=== PATIENT | female | born 1955 | race Two or more races ===

== ENCOUNTER 2021-02-06 13:32 | Emergency (ER) | payer OTHER ==
[~2021-02-06] VITALS: Ht 160 cm; Wt 102.5 kg
[~2021-02-06 13:32] MED LIST: AMBIEN5 MG; BENICAR20 MG; HYZAAR 100/25 T1 TAB; PERCOCET 5/3251 TAB; PLAVIX75 MG; PREDNISONE10 MG; TRAMADOL HCL50 MG
[2021-02-06] MEDS ORDERED: PROTONIX40 M1 (13:44)
[2021-02-06] MEDS ORDERED: CARDURA XL4 MG (13:44)
[2021-02-06] MEDS ORDERED: PEPCID AC20 MG PO (17:43)
[2021-02-06] MEDS ORDERED: CIPRO500 MG PO (17:43)
[2021-02-06] MEDS ORDERED: INTESTINEX680 M1 PO (17:43)
[2021-02-06] MEDS ORDERED: METRONIDAZOLE500 MG PO (17:43)
== END 2021-02-06 20:56 ==
LOC: ER 13:32
DX: K57.32 Diverticulitis of large intestine without perforation or abscess without bleeding (principal); K76.0 Fatty (change of) liver, not elsewhere classified; Z20.822 Contact with and (suspected) exposure to COVID-19

== ENCOUNTER 2021-11-08 17:54 | Emergency (ER) | payer OTHER ==
[~2021-11-08] VITALS: Ht 157.5 cm; Wt 95.3 kg
[~2021-11-08 17:54] MED LIST changes: +CARDURA XL4 MG; +CIPRO500 MG PO; +INTESTINEX680 M1 PO; +METRONIDAZOLE500 MG PO; +PEPCID AC20 MG PO; +PROTONIX40 M1
[2021-11-08] MEDS ORDERED: PANTOPRAZOLE SO40 MG PO (18:18)
[2021-11-08] MEDS ORDERED: JARDIANCE25 MG PO (18:18)
[2021-11-08] MEDS ORDERED: METOPROLOL SUC100 MG PO (18:18)
[2021-11-08] MEDS ORDERED: ATORVASTATIN CA40 MG PO (18:18)
[2021-11-08] MEDS ORDERED: ZOLPIDEM TARTRA10 MG PO (18:19)
[2021-11-08] MEDS ORDERED: TRULICITY0.75 MG/0. SQ (18:19)
[2021-11-08] MEDS ORDERED: METFORMIN HCL750 MG PO (18:19)
[2021-11-08] MEDS ORDERED: OLMESARTAN-HCT1 EAC2 PO (18:19)
== END 2021-11-09 02:42 | disposition home or self-care (01) ==
LOC: ER 17:54
DX: K57.92 Diverticulitis of intestine, part unspecified, without perforation or abscess without bleeding (principal); K76.0 Fatty (change of) liver, not elsewhere classified

== ENCOUNTER 2022-03-12 10:30 | Inpatient (IN) | payer OTHER ==
[~2022-03-12] VITALS: Ht 157.5 cm; Wt 90.7 kg
[~2022-03-12 10:30] MED LIST changes: +ATORVASTATIN CA40 MG PO; +JARDIANCE25 MG PO; +METFORMIN HCL750 MG PO; +METOPROLOL SUC100 MG PO; +OLMESARTAN-HCT1 EAC2 PO; +PANTOPRAZOLE SO40 MG PO; +TRULICITY0.75 MG/0. SQ; +ZOLPIDEM TARTRA10 MG PO
[2022-03-13] MEDS ORDERED: BENICAR HCT 401 EAC1 PO (09:06)
[2022-03-13] MEDS ORDERED: LANTUS SOL100 UNIT/1 (09:08)
[2022-03-13] MEDS ORDERED: TRULICITY1.5 MG/0.5 (09:08)
[2022-03-19] MEDS ORDERED: METHOTREXATE2.5 MG (13:41)
[2022-03-19] MEDS ORDERED: OXYC1TAB9 (13:42)
[2022-03-19] MEDS ORDERED: GABAPENTIN300 M2 (13:42)
[2022-03-19] MEDS ORDERED: METOPROLOL SUC100 MG (13:42)
[2022-03-19] MEDS ORDERED: JARDIANCE25 MG (13:42)
[2022-03-21] MEDS ORDERED: PERCOCET 5-3251 EACH PO (08:42)
[2022-03-21] MEDS ORDERED: ELIQUIS2.5 MG PO (08:42)
[2022-03-21] MEDS ORDERED: DUI500 PO (08:42)
[2022-03-30] MEDS ORDERED: METOPROLOL TART50 MG PO (11:26)
[2022-03-30] MEDS ORDERED: PERCOCET 5-3251 EACH PO (11:26)
[2022-03-30] MEDS ORDERED: CARDURA1 MG PO (11:26)
[2022-03-30] MEDS ORDERED: ELIQUIS2.5 MG PO (11:26)
[2022-03-30] MEDS ORDERED: CEFADROXIL500 MG PO (11:26)
== END 2022-03-30 15:15 | disposition home or self-care (01) | DRG 470 ==
LOC: O/R 03-18 07:17 → SURH 03-18 10:00 → SURG 03-18 14:16 → SURH 03-23 14:28
PROVIDERS: ADMIT Orthopaedic Surgery; ATTEND Orthopaedic Surgery
PROC: 0SRD0J9 Replacement of Left Knee Joint with Synthetic Substitute, Cemented, Open Approach (ICD-10-PCS; principal; 2022-03-18 10:00)
PROC: 4A12X4Z Monitoring of Cardiac Electrical Activity, External Approach (ICD-10-PCS; 2022-03-21)
DX: M17.12 Unilateral primary osteoarthritis, left knee (principal); D62 Acute posthemorrhagic anemia; I97.89 Other postprocedural complications and disorders of the circulatory system, not elsewhere classified; R00.0 Tachycardia, unspecified; M22.12 Recurrent subluxation of patella, left knee; M06.862 Other specified rheumatoid arthritis, left knee; E11.9 Type 2 diabetes mellitus without complications; I10 Essential (primary) hypertension; Z79.4 Long term (current) use of insulin; Z79.84 Long term (current) use of oral hypoglycemic drugs; Y83.8 Other surgical procedures as the cause of abnormal reaction of the patient, or of later complication, without mention of misadventure at the time of the procedure; Y92.230 Patient room in hospital as the place of occurrence of the external cause

== ENCOUNTER 2023-08-10 06:29 | Outpatient (CLI) | payer OTHER ==
[~2023-08-10 06:29] MED LIST changes: +BENICAR HCT 401 EAC1 PO; +CARDURA1 MG PO; +CEFADROXIL500 MG PO; +DUI500 PO; +ELIQUIS2.5 MG PO; +GABAPENTIN300 M2; +JARDIANCE25 MG; +LANTUS SOL100 UNIT/1; +METHOTREXATE2.5 MG; +METOPROLOL SUC100 MG; +METOPROLOL TART50 MG PO; +OXYC1TAB9; +PERCOCET 5-3251 EACH PO; +TRULICITY1.5 MG/0.5
== END 2023-08-10 06:31 | disposition home or self-care (01) ==
LOC: SONOGRAMA 06:29
PROVIDERS: ATTEND Pathology Anatomic Pathology & Clinical Pathology
DX: D34 Benign neoplasm of thyroid gland (principal); E07.89 Other specified disorders of thyroid; E04.2 Nontoxic multinodular goiter

== ENCOUNTER → 2023-09-25 09:51 | Outpatient (CLI) | payer OTHER ==
[2023-09-25 11:13] LABS: HEMATOCRIT 42.4 % (36.0-45.00); HEMOGLOBIN 14.4 g/dL (12.0-15.00); MEAN CELL VOLUME 88.2 fL (80.00-100.00); MEAN CORPUSCULAR HGB CONC 34.1 g/dl (32.0-36.0); PLATELET COUNT 269 K/uL (150-450); RED BLOOD COUNT 4.81 M/uL (4.00-6.00)
[2023-09-25 11:34] LABS: ALBUMIN 3.8 gm/dL (3.4-5.0); BILIRUBIN TOTAL 0.54 mg/dL (0.3-1.2); CALCIUM 9.9 mg/dL (8.5-10.1); CREATININE SERUM 0.85 mg/dL (0.55-1.02); GFR 66.71; GLOBULINA 3.6 G/DL (2.4-3.5); POTASSIUM 3.61 mEq/L (3.5-5.1); TOTAL PROTEIN 7.4 gm/dL (6.4-8.2)
[2023-09-25 12:03] LABS: FOLIC ACID > 20.00 ng/ml (4.78-20)
[2023-09-28 12:10] LABS: MANUAL PLATELET COUNT 362
[2023-09-28 12:12] LABS: PLATELET ESTIMATE NORMAL (NORMAL)
== END | disposition home or self-care (01) ==
LOC: LAB 09:51
PROVIDERS: ATTEND Internal Medicine Hematology & Oncology
DX: D70.2 Other drug-induced agranulocytosis (principal); I10 Essential (primary) hypertension; I87.2 Venous insufficiency (chronic) (peripheral); E78.2 Mixed hyperlipidemia; R80.8 Other proteinuria; N60.21 Fibroadenosis of right breast; M06.89 Other specified rheumatoid arthritis, multiple sites; G63 Polyneuropathy in diseases classified elsewhere; E55.9 Vitamin D deficiency, unspecified; Z96.652 Presence of left artificial knee joint; E66.01 Morbid (severe) obesity due to excess calories; E04.2 Nontoxic multinodular goiter; D50.8 Other iron deficiency anemias; R79.9 Abnormal finding of blood chemistry, unspecified; R74.02 Elevation of levels of lactic acid dehydrogenase [LDH]; K76.89 Other specified diseases of liver; D51.8 Other vitamin B12 deficiency anemias

== ENCOUNTER 2023-12-15 08:30 | Inpatient (IN) | payer OTHER ==
[~2023-12-15] VITALS: Ht 160 cm; Wt 897.2 kg
[2023-12-15] MEDS ORDERED: LIPITOR (10:02)
[2023-12-15] MEDS ORDERED: PREVACID (10:03)
[2023-12-15 10:12] LABS: URINE APPEARANCE Clear; URINE BILIRRUBIN Negative (NEGATIVE); URINE BLOOD Negative; URINE COLOR Yellow; URINE KETONE Negative (NEGATIVE); URINE LEUKOCYTE Negative; URINE NITRATE Negative; URINE PROTEIN Negative (NEGATIVE); URINE UROBILINOGEN 0.2 E.U./dl
[2023-12-15 10:17] LABS: URINE BACTERIA 18.8 uL (0.0-1933); URINE EPITHELIAL CELLS 5.8 uL (0.0-38.8); URINE RBC 2.2 uL (0.0-20.8); URINE WBC 33.3 uL (0.0-23.2)
[2023-12-15 10:26] LABS: HEMATOCRIT 38.4 % (36.0-45.00); MEAN CELL VOLUME 86.2 fL (80.00-100.00); MEAN CORPUSCULAR HEMOGLOBIN 29.2 pg (27.00-32.0); MEAN CORPUSCULAR HGB CONC 33.9 g/dl (32.0-36.0); PLATELET COUNT 285 K/uL (150-450); RED BLOOD COUNT 4.45 M/uL (4.00-6.00); RED CELL DISTRIBUTION WIDTH 15.2 % (11.5-14.5)
[2023-12-15 10:33] LABS: URINE GLUCOSE >=1000 MG/DL (NEGATIVE)
[2023-12-15 10:37] LABS: INR 0.97; PROTHROMBIN TIME 10.6 SECONDS (9.0-11.5)
[2023-12-15 11:16] LABS: ALBUMIN 3.9 gm/dL (3.4-5.0); BILIRUBIN TOTAL 0.55 mg/dL (0.3-1.2); CALCIUM 10.2 mg/dL (8.5-10.1); CHOL HDL RATIO 2.4 (0-5.0); CREATININE SERUM 0.79 mg/dL (0.55-1.02); GFR 72.59; POTASSIUM 4.03 mEq/L (3.5-5.1); TOTAL PROTEIN 7.9 gm/dL (6.4-8.2)
[2023-12-15 12:08] LABS: RH NEGATIVE
[2023-12-22] MEDS ORDERED: PREVACID15 M1 (08:19)
[2023-12-22] MEDS ORDERED: CEFAZOLIN SODIUM 1,000 MG VIAL IV SCH ×2 (08:30→09:00)
[2023-12-22] MEDS ORDERED: TRANEXAMIC ACID 100MG/1ML (1000MG) AMPUL IV ONE ×2 (08:30)
[2023-12-22] MEDS ORDERED: POVIDONE-IODINE 0.75 OZ PACKET TOP ONE (08:45)
[2023-12-22] MEDS ORDERED: BUPIVACAINE HCL 30 ML VIAL IJ ONE (08:45)
[2023-12-22] MEDS ORDERED: MORPHINE SULFATE 4 MG/ML CARTRIDGE IV ONE (08:45)
[2023-12-22] MEDS ORDERED: VANCOMYCIN HCL 1,000 MG VIAL IR ONE (08:45)
[2023-12-22] MEDS ORDERED: ISOPROPYL ALCOHOL 30 ML OUNCE TOP ONE (08:45)
[2023-12-22] MEDS ORDERED: KETOROLAC TROMETHAMINE 30 MG VIAL IJ ONE (08:45)
[2023-12-22] MEDS ORDERED: LIDOCAINE HCL 1%/EPINEPHRINE 20ML VIAL IJ ONE (08:45)
[2023-12-22] MEDS ORDERED: MORPHINE SULFATE 4 MG/ML CARTRIDGE IV PRN (09:00)
[2023-12-22] MEDS ORDERED: GABAPENTIN 300 MG CAPSULE PO SCH (09:00)
[2023-12-22] MEDS ORDERED: OxyCODONE HCL 5 MG TABLET (ROXICODONE) PO PRN (09:00)
[2023-12-22] MEDS ORDERED: ONDANSETRON HCL 2 MG/ML VIAL IV PRN (09:00)
[2023-12-22] MEDS ORDERED: SODIUM CHLORIDE 0.45 % 1,000 ML IV SCH (09:00)
[2023-12-22] MEDS ORDERED: MORPHINE SULFATE 4 MG/ML VIAL IV ONE ×2 (09:45→10:15)
[2023-12-22] MEDS ORDERED: MEPERIDINE HCL 25 MG/ML AMPUL IV ONE (11:15)
[2023-12-22] MEDS ORDERED: ACETAMINOPHEN 500 MG GEL..CAP PO SCH (12:00)
[2023-12-22 12:29] VITALS: BP 152/74; O2SAT 96
[2023-12-22 16:24] VITALS: BP 126/62; O2SAT 98
[2023-12-22] MEDS ORDERED: APIXABAN 2.5 MG TABLET PO SCH (17:00)
[2023-12-23 02:11] VITALS: BP 142/74; O2SAT 97
[2023-12-23 07:08] LABS: HEMATOCRIT 36.4 % (36.0-45.00); HEMOGLOBIN 12.1 g/dL (12.0-15.00); MEAN CELL VOLUME 86.6 fL (80.00-100.00); MEAN CORPUSCULAR HEMOGLOBIN 28.8 pg (27.00-32.0); MEAN CORPUSCULAR HGB CONC 33.3 g/dl (32.0-36.0); PLATELET COUNT 253 K/uL (150-450)
[2023-12-23] MEDS ORDERED: PERCOCET 5-3251 EACH PO (08:23)
[2023-12-23] MEDS ORDERED: ELIQUIS2.5 MG PO (08:23)
[2023-12-23] MEDS ORDERED: DUI500 PO (08:23)
[2023-12-23 08:52] VITALS: BP 120/79; O2SAT 91
[2023-12-23] MEDS ORDERED: IRON FUM,PS/FOLIC ACID/VITC/B3 1 CAP CAPSULE PO SCH (09:00)
[2023-12-23] MEDS ORDERED: SENNOSIDES 1 TAB TABLET PO SCH (09:00)
[2023-12-23] MEDS ORDERED: METOPROLOL SUCCINATE 50 MG TAB.SR.24H PO SCH (09:00)
[2023-12-23] MEDS ORDERED: VITAMIN B COMPLEX 1 EACH PO SCH (17:00)
[2023-12-23] MEDS ORDERED: SOD FERRIC GLUC COMPLX/SUCROSE 62.5 MG/5 ML AMPUL IV SCH (17:00)
[2023-12-23 17:01] VITALS: BP 122/71; O2SAT 98
[2023-12-24] VITALS: BP 120/69; O2SAT 95
[2023-12-24 08:25] LABS: HEMATOCRIT 35.2 % (36.0-45.00); HEMOGLOBIN 11.6 g/dL (12.0-15.00); MEAN CELL VOLUME 87.9 fL (80.00-100.00); MEAN CORPUSCULAR HEMOGLOBIN 28.9 pg (27.00-32.0); MEAN CORPUSCULAR HGB CONC 32.9 g/dl (32.0-36.0); PLATELET COUNT 215 K/uL (150-450); RED CELL DISTRIBUTION WIDTH 15.2 % (11.5-14.5)
[2023-12-24 09:57] VITALS: BP 155/85; O2SAT 96
[2023-12-24] MEDS ORDERED: TRAMADOL HCL 50 MG TABLET PO NR ×2 (10:45→10:47)
[2023-12-24 17:24] VITALS: BP 110/74; O2SAT 93
== END 2023-12-24 22:08 | DRG 470 ==
LOC: SURH 12-22 05:37 → O/R 12-22 05:37 → SURH 12-22 08:30
PROVIDERS: ADMIT Orthopaedic Surgery; ATTEND Orthopaedic Surgery
PROC: 0SRC0J9 Replacement of Right Knee Joint with Synthetic Substitute, Cemented, Open Approach (ICD-10-PCS; principal; 2023-12-22 19:15)
DX: M17.11 Unilateral primary osteoarthritis, right knee (principal); M22.11 Recurrent subluxation of patella, right knee

== ENCOUNTER 2024-04-18 11:24 | Inpatient (IN) | payer OTHER ==
[~2024-04-18] VITALS: Ht 160 cm; Wt 84.4 kg
[~2024-04-18 11:24] MED LIST changes: +LIPITOR; +PREVACID; +PREVACID15 M1
[2024-04-18] MEDS ORDERED: FAMOTIDINE/PF 20 MG in 0.9 % SODIUM CHLORIDE 8 ML IV PUSH STA (12:15)
[2024-04-18] MEDS ORDERED: ONDANSETRON HCL 2 MG/ML VIAL IV ONE (12:15)
[2024-04-18] MEDS ORDERED: KETOROLAC TROMETHAMINE 30 MG VIAL IV ONE (12:30)
[2024-04-18] MEDS ORDERED: 0.9 % SODIUM CHLORIDE 1,000 ML IV SCH ×2 (12:30→19:15)
[2024-04-18] MEDS ORDERED: PIPERACILLIN/TAZOBACTAM SODIUM 3.375 GM VIAL IV ONE ×2 (12:30→12:50)
[2024-04-18] MEDS ORDERED: ONDANSETRON HCL 2 MG/ML VIAL ONE (12:49)
[2024-04-18] MEDS ORDERED: KETOROLAC TROMETHAMINE 30 MG VIAL ONE (12:49)
[2024-04-18] MEDS ORDERED: FAMOTIDINE/PF 20 MG/2 ML VIAL ONE (12:50)
[2024-04-18 13:06] LABS: HEMATOCRIT 38.4 % (36.0-45.00); HEMOGLOBIN 12.9 g/dL (12.0-15.00); MEAN CORPUSCULAR HEMOGLOBIN 28.9 pg (27.00-32.0); MEAN CORPUSCULAR HGB CONC 33.6 g/dl (32.0-36.0); PLATELET COUNT 232 K/uL (150-450); RED BLOOD COUNT 4.47 M/uL (4.00-6.00); RED CELL DISTRIBUTION WIDTH 15.8 % (11.5-14.5)
[2024-04-18 13:28] LABS: ALBUMIN 3.5 gm/dL (3.4-5.0); BILIRUBIN TOTAL 0.92 mg/dL (0.3-1.2); BILIRUBIN,CONJUGATED 0.28 mg/dL (0.0-0.2); BILIRUBIN,UNCONJUGATED 0.64 mg/dL (0.0-0.6); CALCIUM 9.6 mg/dL (8.5-10.1); CREATININE SERUM 0.94 mg/dL (0.55-1.02); GFR 59.39; GLOBULINA 5.2 G/DL (2.4-3.5); POTASSIUM 3.42 mEq/L (3.5-5.1); TOTAL PROTEIN 8.7 gm/dL (6.4-8.2)
[2024-04-18] MEDS ORDERED: PROMETHAZINE HCL 25 MG/ML AMPUL IM ONE (15:00)
[2024-04-18] MEDS ORDERED: MEPERIDINE HCL/PF 50 MG/ML VIAL IM ONE (15:00)
[2024-04-18] MEDS ORDERED: PROMETHAZINE HCL 25 MG/ML AMPUL ONE (15:16)
[2024-04-18] MEDS ORDERED: ACETAMINOPHEN 500 MG GEL..CAP PO PRN (19:30)
[2024-04-18] MEDS ORDERED: MORPHINE SULFATE 4 MG/ML CARTRIDGE IV ONE (19:30)
[2024-04-18] MEDS ORDERED: ONDANSETRON HCL 4 MG in 0.9 % SODIUM CHLORIDE 50 ML IV PRN (19:30)
[2024-04-18] MEDS ORDERED: MORPHINE SULFATE 4 MG/ML CARTRIDGE IV PRN (19:30)
[2024-04-18] MEDS ORDERED: POTASSIUM CHLORIDE 20MEQ/100ML H2O PB IV ONE (19:45)
[2024-04-18] MEDS ORDERED: ZOLPIDEM TARTRATE 10 MG TABLET PO SCH (21:00)
[2024-04-18 21:32] LABS: MAGNESIUM 1.8 mg/dL (1.8-2.4)
[2024-04-18 22:10] LABS: URINE APPEARANCE Clear; URINE BILIRRUBIN Negative (NEGATIVE); URINE BLOOD Negative; URINE COLOR Yellow; URINE KETONE 15 (NEGATIVE); URINE LEUKOCYTE Trace; URINE NITRATE Negative; URINE PROTEIN 30 (NEGATIVE)
[2024-04-18 22:11] LABS: URINE EPITHELIAL CELLS 35.4 uL (0.0-38.8); URINE RBC 8.5 uL (0.0-20.8); URINE WBC 126.6 uL (0.0-23.2)
[2024-04-18 22:25] LABS: URINE CAST 0.29 uL (0.0-1.40); URINE GLUCOSE >=1000 MG/DL (NEGATIVE)
[2024-04-18 22:26] LABS: URINE EPITHELIAL CELLS 0-4 /HPF
[2024-04-18 22:39] VITALS: BP 115/66; O2SAT 100
[2024-04-18 23:26] LABS: INR 1.08; PARTIAL THROMBOPLASTIN TIME 29.6 SECONDS (22.0-34.0); PROTHROMBIN TIME 11.7 SECONDS (9.0-11.5)
[2024-04-19] MEDS ORDERED: PIPERACILLIN/TAZOBACTAM SODIUM 3.375 GM in DEXTROSE 5 % IN WATER 100 ML IV SCH
[2024-04-19 01:37] VITALS: BP 90/51
[2024-04-19 08:40] VITALS: BP 117/63
[2024-04-19] MEDS ORDERED: PANTOPRAZOLE SODIUM 40 MG/VIAL VIAL IV SCH (09:00)
[2024-04-19] MEDS ORDERED: METOPROLOL SUCCINATE 50 MG TAB.SR.24H PO SCH (09:00)
[2024-04-19] MEDS ORDERED: ENOXAPARIN SODIUM 40 MG/0.4 ML SYRINGE SUBCUTANEO SCH (09:00)
[2024-04-19] MEDS ORDERED: PREDNISONE 10 MG TABLET PO SCH (09:00)
[2024-04-19] MEDS ORDERED: FLUCONAZOLE IN NACL,ISO-OSM 200 MG/100 ML PIGGYBAG IV STA (12:03)
[2024-04-19 16:00] VITALS: BP 133/68; O2SAT 95
[2024-04-19 16:17] LABS: CALCIUM 8.5 mg/dL (8.5-10.1); CREATININE SERUM 0.75 mg/dL (0.55-1.02); GFR 77.08; POTASSIUM 3.86 mEq/L (3.5-5.1)
[2024-04-19] MEDS ORDERED: AMINO ACIDS 4.25 %/DEXTROSE 5% 1,000 ML PERIFERAL SCH (17:00)
[2024-04-19] MEDS ORDERED: DOXAZOSIN MESYLATE 4 MG TABLET PO SCH (17:00)
[2024-04-20 00:33] VITALS: BP 130/76
[2024-04-20 08:52] VITALS: BP 102/58; O2SAT 96
[2024-04-20] MEDS ORDERED: FLUCONAZOLE IN NACL,ISO-OSM 200 MG/100 ML PIGGYBAG IV SCH (09:00)
[2024-04-20 17:41] VITALS: BP 125/67; O2SAT 97
[2024-04-21] VITALS: BP 131/70; O2SAT 97
[2024-04-21 08:20] VITALS: BP 131/71
[2024-04-21] MEDS ORDERED: BUDESONIDE 0.5 MG/2 ML AMPUL.NEB IH STA (10:34)
[2024-04-21] MEDS ORDERED: ALBUTEROL SULFATE 3 ML/2.5 MG AMPUL.NEB IH STA (10:34)
[2024-04-21] MEDS ORDERED: GUAIFENESIN/DEXTROMETHORPHAN 100MG/10ML BLIST.PACK PO SCH (13:00)
[2024-04-21] MEDS ORDERED: ALBUTEROL SULFATE 3 ML/2.5 MG AMPUL.NEB IH SCH (17:00)
[2024-04-21 17:03] VITALS: BP 132/72; O2SAT 97
[2024-04-21] MEDS ORDERED: BUDESONIDE 0.5 MG/2 ML AMPUL.NEB IH SCH (21:00)
[2024-04-22] VITALS: BP 129/66; O2SAT 95
[2024-04-22] MEDS ORDERED: DEXTROSE 5%-WATER 100ML IV.SOLN ONE (05:15)
[2024-04-22 05:27] LABS: HEMATOCRIT 29.8 % (36.0-45.00); HEMOGLOBIN 10.3 g/dL (12.0-15.00); MEAN CELL VOLUME 85.6 fL (80.00-100.00); MEAN CORPUSCULAR HEMOGLOBIN 29.6 pg (27.00-32.0); MEAN CORPUSCULAR HGB CONC 34.6 g/dl (32.0-36.0); PLATELET COUNT 211 K/uL (150-450); RED BLOOD COUNT 3.48 M/uL (4.00-6.00); RED CELL DISTRIBUTION WIDTH 15.3 % (11.5-14.5)
[2024-04-22 05:40] LABS: ERYTHROCYTE SEDIMENTATION RATE 61 mm/hr
[2024-04-22 09:23] VITALS: BP 138/73
[2024-04-22] MEDS ORDERED: METRONIDAZOLE/SODIUM CHLORIDE 500 MG/100 ML PIGGYBACK IV SCH (17:00)
[2024-04-22 17:19] VITALS: BP 149/68; O2SAT 96
[2024-04-22] MEDS ORDERED: CEFEPIME HCL 2,000 MG VIAL IV SCH (21:00)
[2024-04-23 02:15] VITALS: BP 116/54
[2024-04-23 08:36] VITALS: BP 133/73
[2024-04-23 16:09] VITALS: BP 121/64; O2SAT 99
[2024-04-24 02:29] VITALS: BP 148/79; O2SAT 96
[2024-04-24 08:44] VITALS: BP 136/80; O2SAT 96
[2024-04-24 18:06] VITALS: BP 120/60
[2024-04-25 02:25] VITALS: BP 149/74
[2024-04-25 06:26] LABS: HEMATOCRIT 29.7 % (36.0-45.00); HEMOGLOBIN 10.3 g/dL (12.0-15.00); MEAN CELL VOLUME 84.6 fL (80.00-100.00); MEAN CORPUSCULAR HEMOGLOBIN 29.3 pg (27.00-32.0); MEAN CORPUSCULAR HGB CONC 34.6 g/dl (32.0-36.0); PLATELET COUNT 221 K/uL (150-450); RED BLOOD COUNT 3.51 M/uL (4.00-6.00); RED CELL DISTRIBUTION WIDTH 15.7 % (11.5-14.5)
[2024-04-25 07:04] LABS: INR 1.13; PARTIAL THROMBOPLASTIN TIME 27.4 SECONDS (22.0-34.0); PROTHROMBIN TIME 12.2 SECONDS (9.0-11.5)
[2024-04-25 07:21] LABS: ALBUMIN 2.7 gm/dL (3.4-5.0); BILIRUBIN TOTAL 0.33 mg/dL (0.3-1.2); BILIRUBIN,CONJUGATED 0.13 mg/dL (0.0-0.2); BILIRUBIN,UNCONJUGATED 0.2 mg/dL (0.0-0.6); CALCIUM 8.5 mg/dL (8.5-10.1); CREATININE SERUM 0.45 mg/dL (0.55-1.02); GFR 138.97; GLOBULINA 3.2 G/DL (2.4-3.5); MAGNESIUM 1.5 mg/dL (1.8-2.4); TOTAL PROTEIN 5.9 gm/dL (6.4-8.2)
[2024-04-25 08:10] LABS: POTASSIUM 2.79 mEq/L (3.5-5.1)
[2024-04-25 09:29] VITALS: BP 135/72; O2SAT 97
[2024-04-25 10:16] LABS: UREA CLEARANCE 56.4 ML/MIN
[2024-04-25] MEDS ORDERED: POTASSIUM CHLORIDE IN WATER 40 MEQ/100 ML PIGGYBAG IV NR (12:30)
[2024-04-25] MEDS ORDERED: MAGNESIUM SULFATE IN WATER 4GM/50ML PIGGYBAG IV STA (14:47)
[2024-04-25 16:37] VITALS: BP 141/81; O2SAT 96
[2024-04-25] MEDS ORDERED: MAGNESIUM SULFATE IN WATER 4 GM/100 ML PIGGYBACK IV ONE (17:12)
[2024-04-25] MEDS ORDERED: MAGNESIUM SULFATE IN WATER 4 GM/100 ML PIGGYBACK IV STA (17:25)
[2024-04-26 01:07] VITALS: BP 150/80; O2SAT 97
[2024-04-26 09:18] VITALS: BP 149/79; O2SAT 97
[2024-04-26] MEDS ORDERED: METRONIDAZOLE500 MG PO (12:01)
[2024-04-26] MEDS ORDERED: INTESTINEX680 M2 PO (12:01)
[2024-04-26] MEDS ORDERED: LEVOFLOXACIN750 MG PO (12:01)
[2024-04-26] MEDS ORDERED: PEPCID AC20 MG PO (12:01)
== END 2024-04-26 13:46 | disposition home or self-care (01) | DRG 392 ==
LOC: ER 11:27 → MEDI 19:58
PROVIDERS: General Practice; ADMIT Internal Medicine; ATTEND Internal Medicine
PROC: BW21ZZZ Computerized Tomography (CT Scan) of Abdomen and Pelvis (ICD-10-PCS; 2024-04-18)
PROC: 02HV33Z Insertion of Infusion Device into Superior Vena Cava, Percutaneous Approach (ICD-10-PCS; principal; 2024-04-20)
PROC: BW21YZZ Computerized Tomography (CT Scan) of Abdomen and Pelvis using Other Contrast (ICD-10-PCS; 2024-04-24)
DX: K57.20 Diverticulitis of large intestine with perforation and abscess without bleeding (principal); E86.0 Dehydration; E87.6 Hypokalemia; I10 Essential (primary) hypertension; E78.5 Hyperlipidemia, unspecified; E11.9 Type 2 diabetes mellitus without complications; Z79.4 Long term (current) use of insulin

== ENCOUNTER 2024-06-13 15:04 | Inpatient (IN) | payer OTHER ==
[~2024-06-13] VITALS: Ht 160 cm; Wt 0.5 kg
[~2024-06-13 15:04] MED LIST changes: +INTESTINEX680 M2 PO; +LEVOFLOXACIN750 MG PO
--- NOTE | 2024-06-13 15:46 | NUR ---
PTE ALERTA Y ORIENTADA X3 VERBALIZA QUE TIENE DOLOR ABDOMINAL Y PADECE DE DIVERTICULO SE LE JASKARAN S/V Y SE UBICA EN BJ.
[2024-06-13] MEDS ORDERED: ONDANSETRON HCL 2 MG/ML VIAL IV ONE (16:45)
[2024-06-13] MEDS ORDERED: CEFTRIAXONE SODIUM 1,000 MG VIAL IV ONE (16:45)
[2024-06-13] MEDS ORDERED: TAMSULOSIN HCL 0.4 MG CAP PO ONE ×2 (16:45→16:46)
[2024-06-13] MEDS ORDERED: FAMOtidine 10 MG/ML (4ML VIAL) IV ONE (16:45)
[2024-06-13] MEDS ORDERED: KETOROLAC TROMETHAMINE 30 MG VIAL IV ONE (16:45)
[2024-06-13] MEDS ORDERED: FAMOTIDINE/PF 20 MG/2 ML VIAL ONE (16:46)
[2024-06-13] MEDS ORDERED: CEFTRIAXONE SODIUM 1,000 MG VIAL ONE (16:46)
[2024-06-13] MEDS ORDERED: KETOROLAC TROMETHAMINE 30 MG VIAL ONE (16:46)
[2024-06-13] MEDS ORDERED: ONDANSETRON HCL 2 MG/ML VIAL ONE (16:46)
--- NOTE | 2024-06-13 17:05 | NUR ---
PTE ALERTA Y ORIENTADO X3, BOBBY FINCH ORIENTA SOBRE TX MEDICO,REFIERE ACEPTAR. CANALIZA Y COLECTA MUESTRAS DE LAB. ADMINSITRA MEDS MAXIMINO ORDEN MEDICA. PEND A REALIZAR CT
[2024-06-13 17:17] LABS: HEMATOCRIT 36.5 % (36.0-45.00); HEMOGLOBIN 11.9 g/dL (12.0-15.00); MEAN CELL VOLUME 84.2 fL (80.00-100.00); MEAN CORPUSCULAR HEMOGLOBIN 27.4 pg (27.00-32.0); MEAN CORPUSCULAR HGB CONC 32.5 g/dl (32.0-36.0); PLATELET COUNT 327 K/uL (150-450); RED BLOOD COUNT 4.34 M/uL (4.00-6.00); RED CELL DISTRIBUTION WIDTH 15.1 % (11.5-14.5)
[2024-06-13 17:36] LABS: ALBUMIN 3.2 gm/dL (3.4-5.0); BILIRUBIN TOTAL 0.63 mg/dL (0.3-1.2); CALCIUM 9.7 mg/dL (8.5-10.1); CREATININE SERUM 1.15 mg/dL (0.55-1.02); GFR 46.92; GLOBULINA 5.5 G/DL (2.4-3.5); POTASSIUM 3.98 mEq/L (3.5-5.1); TOTAL PROTEIN 8.7 gm/dL (6.4-8.2)
[2024-06-13 18:27] VITALS: BP 160/80
[2024-06-13] MEDS ORDERED: 0.9 % SODIUM CHLORIDE 1,000 ML IV SCH (18:45)
[2024-06-13] MEDS ORDERED: DEXTROSE 50 % IN WATER 0.5 G/ML DISP.SYRIN IV PRN (19:00)
[2024-06-13] MEDS ORDERED: MORPHINE SULFATE 4 MG/ML CARTRIDGE IV ONE (19:00)
[2024-06-13] MEDS ORDERED: INSULIN LISPRO 1,000 UNIT/10 ML UNITS SUBCUTANEO PRN (19:00)
[2024-06-13] MEDS ORDERED: MEROPENEM 500 MG/VIAL VIAL IV SCH (19:05)
[2024-06-13 19:50] LABS: INR 1.11; PARTIAL THROMBOPLASTIN TIME 28.3 SECONDS (22.0-34.0)
[2024-06-13] MEDS ORDERED: MORPHINE SULFATE 4 MG/ML CARTRIDGE IV SCH (20:00)
[2024-06-13 20:03] LABS: URINE APPEARANCE Clear; URINE BILIRRUBIN Negative (NEGATIVE); URINE BLOOD Negative; URINE COLOR Yellow; URINE KETONE Trace (NEGATIVE); URINE LEUKOCYTE Negative; URINE NITRATE Negative; URINE PROTEIN Trace (NEGATIVE); URINE UROBILINOGEN 0.2 E.U./dl
[2024-06-13 20:08] LABS: URINE BACTERIA 37.9 uL (0.0-1933); URINE EPITHELIAL CELLS 21.8 uL (0.0-38.8); URINE RBC 14.7 uL (0.0-20.8); URINE WBC 51.5 uL (0.0-23.2)
[2024-06-13 20:19] LABS: URINE GLUCOSE >=1000 MG/DL (NEGATIVE)
[2024-06-13] MEDS ORDERED: ZOLPIDEM TARTRATE 10 MG TABLET PO SCH (21:00)
[2024-06-14 00:06] VITALS: BP 126/68; O2SAT 95
[2024-06-14] MEDS ORDERED: METOPROLOL SUCCINATE 25 MG TAB.SR.24H PO STA (00:42)
[2024-06-14 01:41] VITALS: BP 138/83; O2SAT 95
[2024-06-14 08:00] VITALS: BP 121/69; O2SAT 95
[2024-06-14] MEDS ORDERED: ENOXAPARIN SODIUM 40 MG/0.4 ML SYRINGE SUBCUTANEO SCH (09:00)
[2024-06-14] MEDS ORDERED: LOSARTAN POTASSIUM 50 MG TABLET PO SCH (09:00)
[2024-06-14] MEDS ORDERED: METOPROLOL SUCCINATE 25 MG TAB.SR.24H PO SCH (09:00)
[2024-06-14] MEDS ORDERED: PREDNISONE 5 MG TABLET PO SCH (09:00)
[2024-06-14] MEDS ORDERED: FLUCONAZOLE IN NACL,ISO-OSM 100 ML IV SCH (12:00)
[2024-06-14 13:47] LABS: CALCIUM 9.1 mg/dL (8.5-10.1); CHOL HDL RATIO 2.9 (0-5.0); CREATININE SERUM 0.72 mg/dL (0.55-1.02); GFR 80.55; POTASSIUM 4.17 mEq/L (3.5-5.1)
[2024-06-14] MEDS ORDERED: AMINO ACIDS 4.25 %/DEXTROSE 5% 1,000 ML PERIFERAL SCH (17:00)
[2024-06-14 17:32] VITALS: BP 119/66; O2SAT 96
[2024-06-15 00:30] VITALS: BP 121/70; O2SAT 92
[2024-06-15 08:00] VITALS: BP 110/70; O2SAT 95
[2024-06-15 17:23] VITALS: BP 124/78; O2SAT 96
[2024-06-16 00:47] VITALS: BP 106/61; O2SAT 96
[2024-06-16 07:56] LABS: HEMATOCRIT 31.7 % (36.0-45.00); HEMOGLOBIN 10.7 g/dL (12.0-15.00); MEAN CELL VOLUME 82.5 fL (80.00-100.00); MEAN CORPUSCULAR HEMOGLOBIN 27.9 pg (27.00-32.0); MEAN CORPUSCULAR HGB CONC 33.8 g/dl (32.0-36.0); PLATELET COUNT 221 K/uL (150-450); RED BLOOD COUNT 3.84 M/uL (4.00-6.00); RED CELL DISTRIBUTION WIDTH 14.9 % (11.5-14.5)
[2024-06-16 08:05] LABS: ERYTHROCYTE SEDIMENTATION RATE 72 mm/hr
[2024-06-16] MEDS ORDERED: ONDANSETRON HCL 2 MG/ML VIAL IV SCH (09:00)
[2024-06-16 11:04] VITALS: BP 148/87; O2SAT 94
[2024-06-16] MEDS ORDERED: LINEZOLID IN DEXTROSE 5% 600 MG/300 ML PIGGYBAG IV STA (13:38)
[2024-06-16] MEDS ORDERED: DEXTROSE 50 % IN WATER 0.5 G/ML VIAL IV PRN (14:30)
[2024-06-16 16:00] VITALS: BP 121/82; O2SAT 96
[2024-06-16 16:47] LABS: ob POSITIVE (NEGATIVE)
[2024-06-16 16:56] LABS: FECAL LEUKOCYTES POSITIVE (NEGATIVE)
[2024-06-16] MEDS ORDERED: METRONIDAZOLE/SODIUM CHLORIDE 500 MG/100 ML PIGGYBACK IV STA (18:14)
[2024-06-16] MEDS ORDERED: LINEZOLID IN DEXTROSE 5% 300 ML IV SCH (21:00)
[2024-06-17 00:25] VITALS: BP 112/68; O2SAT 98
[2024-06-17] MEDS ORDERED: METRONIDAZOLE/SODIUM CHLORIDE 500 MG/100 ML PIGGYBACK IV SCH (01:00)
[2024-06-17 08:00] VITALS: BP 112/73; O2SAT 97
[2024-06-17] MEDS ORDERED: ACETAMINOPHEN 500 MG GEL..CAP PO PRN (13:00)
[2024-06-17 15:00] VITALS: BP 113/71; O2SAT 97
[2024-06-18 00:34] VITALS: BP 107/63; O2SAT 98
[2024-06-18 08:44] VITALS: BP 122/85; O2SAT 99
[2024-06-18] MEDS ORDERED: GABAPENTIN 300 MG CAPSULE PO SCH (09:00)
[2024-06-18 16:00] VITALS: BP 123/77; O2SAT 98
[2024-06-19 00:05] VITALS: BP 111/70; O2SAT 98
[2024-06-19 07:31] LABS: HEMATOCRIT 28.6 % (36.0-45.00); HEMOGLOBIN 9.8 g/dL (12.0-15.00); MEAN CELL VOLUME 81.7 fL (80.00-100.00); MEAN CORPUSCULAR HEMOGLOBIN 27.9 pg (27.00-32.0); MEAN CORPUSCULAR HGB CONC 34.2 g/dl (32.0-36.0); PLATELET COUNT 260 K/uL (150-450)
[2024-06-19 07:50] LABS: CALCIUM 8.4 mg/dL (8.5-10.1); CREATININE SERUM 0.46 mg/dL (0.55-1.02); GFR 135.09; POTASSIUM 3.48 mEq/L (3.5-5.1)
[2024-06-19 08:39] VITALS: BP 136/79; O2SAT 96
[2024-06-19 08:45] LABS: MAGNESIUM 1.3 mg/dL (1.8-2.4); PHOSPHOROUS 1.5 mg/dL (2.5-4.9)
[2024-06-19] MEDS ORDERED: POTASSIUM PHOS,M-BASIC-D-BASIC 3 MM/ML VIAL IV NR (09:45)
[2024-06-19] MEDS ORDERED: MAGNESIUM SULFATE IN WATER 4 GM/100 ML PIGGYBACK IV NR (10:15)
[2024-06-19 16:00] VITALS: BP 117/75; O2SAT 97
[2024-06-20 07:40] LABS: HEMATOCRIT 27.1 % (36.0-45.00); HEMOGLOBIN 9.3 g/dL (12.0-15.00); MEAN CELL VOLUME 80.8 fL (80.00-100.00); MEAN CORPUSCULAR HEMOGLOBIN 27.7 pg (27.00-32.0); MEAN CORPUSCULAR HGB CONC 34.3 g/dl (32.0-36.0); PLATELET COUNT 251 K/uL (150-450); RED BLOOD COUNT 3.35 M/uL (4.00-6.00); RED CELL DISTRIBUTION WIDTH 15.4 % (11.5-14.5)
[2024-06-20 08:00] VITALS: BP 138/80; O2SAT 98
[2024-06-20 08:06] LABS: INR 1.14; PARTIAL THROMBOPLASTIN TIME 28.6 SECONDS (22.0-34.0); PROTHROMBIN TIME 12.3 SECONDS (9.0-11.5)
[2024-06-20 08:27] LABS: ALBUMIN 2.3 gm/dL (3.4-5.0); ALKALINE PHOSPHATASE 61 U/L (50-136); ALT/SGPT 9 U/L (12-78); ANION GAP 10 (10.0-20.0); AST/SGOT 11 U/L (15-37); BILIRUBIN TOTAL 0.22 mg/dL (0.3-1.2); BILIRUBIN,CONJUGATED < 0.10 mg/dL (0.0-0.2); BILIRUBIN,UNCONJUGATED 0.12 mg/dL (0.0-0.6); BLOOD UREA NITROGEN 13 mg/dL (7-18); BUN CREA RATIO 33 (7.0-25.0); CALCIUM 8.5 mg/dL (8.5-10.1); CARBON DIOXIDE 24 mEq/L (21-32); CHLORIDE 115 mmol/L (98-107); CHOL HDL RATIO 3.9 (0-5.0); CHOLESTEROL 105 mg/dL (0-200); CREATININE SERUM 0.39 mg/dL (0.55-1.02); GFR 163.43; GLOBULINA 3.6 G/DL (2.4-3.5); GLUCOSE FASTING 186 mg/dL (65-100); HDL 27 mg/dl (40-60); LDL 50 mg/dl (0-130); OSMOLALITY SERUM 296 MOSM/KG (275-295); PHOSPHOROUS 2.4 mg/dL (2.5-4.9); POTASSIUM 3.15 mEq/L (3.5-5.1); SODIUM 146 mmol/L (136-145); TOTAL PROTEIN 5.9 gm/dL (6.4-8.2); TRIGLYCERIDES 142 mg/dL (0-150); VLDL 28 (0-39)
[2024-06-20] MEDS ORDERED: ALBUTEROL SULFATE 3 ML/2.5 MG AMPUL.NEB IH STA (11:32)
[2024-06-20] MEDS ORDERED: BUDESONIDE 0.5 MG/2 ML AMPUL.NEB IH STA (11:33)
[2024-06-20] MEDS ORDERED: ALBUTEROL SULFATE 3 ML/2.5 MG AMPUL.NEB IH SCH (13:00)
[2024-06-20 13:02] LABS: UREA CLEARANCE 28.5 ML/MIN
[2024-06-20] MEDS ORDERED: POTASSIUM CHLORIDE 20MEQ/100ML H2O PB IV NR (13:30)
[2024-06-20] MEDS ORDERED: SOD FERRIC GLUC COMPLX/SUCROSE 62.5 MG in 0.9 % SODIUM CHLORIDE 50 ML IV NR (13:30)
[2024-06-20 16:00] VITALS: BP 133/81; O2SAT 96
[2024-06-20] MEDS ORDERED: MIDAZOLAM HCL 2 MG/2 ML VIAL IV PUSH ONE (18:30)
[2024-06-20] MEDS ORDERED: fentaNYL CITRATE 50 MCG/ML AMPUL IV PUSH ONE (18:30)
[2024-06-20] MEDS ORDERED: POTASSIUM PHOS,M-BASIC-D-BASIC 18 MM in 0.9 % SODIUM CHLORIDE 250 ML IV ONE (19:00)
[2024-06-20] MEDS ORDERED: BUDESONIDE 0.5 MG/2 ML AMPUL.NEB IH SCH (21:00)
[2024-06-21 00:02] VITALS: BP 147/80; O2SAT 99
[2024-06-21] MEDS ORDERED: SOD FERRIC GLUC COMPLX/SUCROSE 62.5 MG in 0.9 % SODIUM CHLORIDE 50 ML IV SCH (09:00)
[2024-06-22 00:49] VITALS: BP 116/68; O2SAT 96
[2024-06-22 08:00] VITALS: BP 148/82; O2SAT 96
[2024-06-22 16:00] VITALS: BP 157/83; O2SAT 98
[2024-06-22] MEDS ORDERED: IMIPENEM/CILASTATIN SODIUM 500 MG VIAL IV SCH (18:00)
[2024-06-23 01:08] VITALS: BP 126/70; O2SAT 96
[2024-06-23 08:00] VITALS: BP 148/80; O2SAT 97
[2024-06-23] MEDS ORDERED: OxyCODONE HCL/APAP UD (PERCOCET) PO PRN (10:15)
[2024-06-23] MEDS ORDERED: IMIPENEM/CILASTATIN SODIUM 500 MG VIAL IV SCH ×2 (12:00→14:00)
[2024-06-23] MEDS ORDERED: ANIDULAFUNGIN 100 MG VIAL IV STA (12:39)
[2024-06-23] MEDS ORDERED: ANIDULAFUNGIN 100 MG VIAL IV ONE (16:00)
[2024-06-23 16:32] VITALS: BP 137/83; O2SAT 98
[2024-06-24] VITALS: BP 145/82; O2SAT 97
[2024-06-24 08:00] VITALS: BP 105/65; O2SAT 95
[2024-06-24] MEDS ORDERED: ANIDULAFUNGIN 100 MG VIAL IV SCH (09:00)
[2024-06-24 16:55] VITALS: BP 126/75; O2SAT 96
[2024-06-24] MEDS ORDERED: VANCOMYCIN HCL 125 MG CAPSULE PO SCH (17:00)
[2024-06-25 00:40] VITALS: BP 134/79; O2SAT 98
[2024-06-25 08:00] VITALS: BP 138/82; O2SAT 96
[2024-06-25 08:27] LABS: HEMATOCRIT 28.5 % (36.0-45.00); HEMOGLOBIN 9.4 g/dL (12.0-15.00); MEAN CELL VOLUME 81.8 fL (80.00-100.00); MEAN CORPUSCULAR HEMOGLOBIN 27.1 pg (27.00-32.0); MEAN CORPUSCULAR HGB CONC 33.1 g/dl (32.0-36.0); PLATELET COUNT 317 K/uL (150-450); RED BLOOD COUNT 3.49 M/uL (4.00-6.00); RED CELL DISTRIBUTION WIDTH 15.9 % (11.5-14.5)
[2024-06-25 09:00] LABS: ALBUMIN 2.3 gm/dL (3.4-5.0); BILIRUBIN TOTAL 0.31 mg/dL (0.3-1.2); CALCIUM 8.5 mg/dL (8.5-10.1); CREATININE SERUM 0.43 mg/dL (0.55-1.02); GFR 146.02; GLOBULINA 3.7 G/DL (2.4-3.5)
[2024-06-25 10:20] LABS: POTASSIUM 2.75 mEq/L (3.5-5.1)
[2024-06-25] MEDS ORDERED: POTASSIUM CHLORIDE IN WATER 100 ML IV NR (12:00)
[2024-06-25 16:00] VITALS: BP 146/77; O2SAT 95
[2024-06-25] MEDS ORDERED: LACTOBACILLUS ACIDOPHILUS 1 CAP CAP PO SCH (17:00)
[2024-06-26 00:24] VITALS: BP 128/79; O2SAT 96
[2024-06-26 08:00] VITALS: BP 153/85; O2SAT 98
[2024-06-26 16:42] VITALS: BP 161/83; O2SAT 98
[2024-06-27 00:30] VITALS: BP 132/68; O2SAT 95
[2024-06-27 07:02] LABS: HEMATOCRIT 28.2 % (36.0-45.00); HEMOGLOBIN 9.4 g/dL (12.0-15.00); MEAN CELL VOLUME 82.3 fL (80.00-100.00); MEAN CORPUSCULAR HEMOGLOBIN 27.6 pg (27.00-32.0); MEAN CORPUSCULAR HGB CONC 33.5 g/dl (32.0-36.0); PLATELET COUNT 330 K/uL (150-450); RED BLOOD COUNT 3.42 M/uL (4.00-6.00); RED CELL DISTRIBUTION WIDTH 15.5 % (11.5-14.5)
[2024-06-27 07:43] LABS: INR 1.15; PARTIAL THROMBOPLASTIN TIME 29.7 SECONDS (22.0-34.0); PROTHROMBIN TIME 12.4 SECONDS (9.0-11.5)
[2024-06-27 08:08] LABS: ALBUMIN 2.3 gm/dL (3.4-5.0); ALKALINE PHOSPHATASE 111 U/L (50-136); ALT/SGPT 10 U/L (12-78); ANION GAP 10 (10.0-20.0); AST/SGOT 10 U/L (15-37); BILIRUBIN TOTAL 0.31 mg/dL (0.3-1.2); BILIRUBIN,CONJUGATED < 0.10 mg/dL (0.0-0.2); BILIRUBIN,UNCONJUGATED 0.21 mg/dL (0.0-0.6); BLOOD UREA NITROGEN 10 mg/dL (7-18); BUN CREA RATIO 21 (7.0-25.0); CALCIUM 8.8 mg/dL (8.5-10.1); CARBON DIOXIDE 26 mEq/L (21-32); CHLORIDE 110 mmol/L (98-107); CHOL HDL RATIO 3.4 (0-5.0); CHOLESTEROL 119 mg/dL (0-200); CREATININE SERUM 0.47 mg/dL (0.55-1.02); GFR 131.77; GLOBULINA 3.7 G/DL (2.4-3.5); GLUCOSE FASTING 178 mg/dL (65-100); HDL 35 mg/dl (40-60); LDL 51 mg/dl (0-130); OSMOLALITY SERUM 288 MOSM/KG (275-295); POTASSIUM 3.15 mEq/L (3.5-5.1); SODIUM 143 mmol/L (136-145); TRIGLYCERIDES 167 mg/dL (0-150); VLDL 33 (0-39)
[2024-06-27 08:15] VITALS: BP 153/88; O2SAT 97
[2024-06-27] MEDS ORDERED: POTASSIUM CHLORIDE IN WATER 100 ML IV NR (11:30)
[2024-06-27] MEDS ORDERED: MAGNESIUM SULFATE IN WATER 4 GM/100 ML PIGGYBACK IV NR (12:00)
[2024-06-27] MEDS ORDERED: OxyCODONE HCL/APAP UD (PERCOCET) PO PRN (15:30)
[2024-06-27 17:25] VITALS: BP 147/87; O2SAT 99
[2024-06-28 01:04] VITALS: BP 143/77; O2SAT 95
[2024-06-28 08:00] VITALS: BP 154/89; O2SAT 96
[2024-06-28 15:00] LABS: URINE PROT QUANT 24HR 19.2 MG/DL
[2024-06-28 15:25] LABS: URINE PROT QUANT 24 HR 470.4 MG/24HR (42-225)
[2024-06-28 16:00] VITALS: BP 123/78; O2SAT 97
[2024-06-29 00:47] VITALS: BP 144/79; O2SAT 97
[2024-06-29 08:08] VITALS: BP 139/78; O2SAT 99
[2024-06-29 16:00] VITALS: BP 149/89; O2SAT 98
[2024-06-30 01:20] VITALS: BP 137/78; O2SAT 99
[2024-06-30 08:00] VITALS: BP 149/84; O2SAT 96
[2024-06-30] MEDS ORDERED: FAMOTIDINE/PF 20 MG/2 ML VIAL IV SCH (12:04)
[2024-06-30] MEDS ORDERED: ONDANSETRON HCL 4 MG in 0.9 % SODIUM CHLORIDE 50 ML IV SCH (13:00)
[2024-06-30 16:00] VITALS: BP 157/87; O2SAT 96
[2024-07-01 00:46] VITALS: BP 143/80; O2SAT 95
[2024-07-01 08:00] VITALS: BP 150/90; O2SAT 96
[2024-07-01 16:00] VITALS: BP 151/87; O2SAT 97
[2024-07-02 01:11] VITALS: BP 133/83; O2SAT 100
[2024-07-02 08:00] VITALS: BP 147/84; O2SAT 95
[2024-07-02 10:01] LABS: HEMATOCRIT 28.9 % (36.0-45.00); HEMOGLOBIN 9.7 g/dL (12.0-15.00); MEAN CELL VOLUME 81.9 fL (80.00-100.00); MEAN CORPUSCULAR HEMOGLOBIN 27.5 pg (27.00-32.0); MEAN CORPUSCULAR HGB CONC 33.6 g/dl (32.0-36.0); PLATELET COUNT 272 K/uL (150-450); RED BLOOD COUNT 3.53 M/uL (4.00-6.00); RED CELL DISTRIBUTION WIDTH 16.3 % (11.5-14.5)
[2024-07-02 10:11] LABS: ERYTHROCYTE SEDIMENTATION RATE 57 mm/hr
[2024-07-02 16:00] VITALS: BP 153/85; O2SAT 95
[2024-07-03 00:30] VITALS: BP 143/73; O2SAT 98
[2024-07-03 08:00] VITALS: BP 146/83; O2SAT 97
[2024-07-03 10:49] LABS: CALCIUM 8.4 mg/dL (8.5-10.1); CREATININE SERUM 0.47 mg/dL (0.55-1.02); GFR 131.77; PHOSPHOROUS 3.2 mg/dL (2.5-4.9); POTASSIUM 3.22 mEq/L (3.5-5.1)
[2024-07-03 12:03] LABS: MAGNESIUM 1.3 mg/dL (1.8-2.4)
[2024-07-03] MEDS ORDERED: MAGNESIUM SULFATE IN WATER 50 ML IV NR (13:00)
[2024-07-03] MEDS ORDERED: PANTOPRAZOLE SODIUM 40 MG/VIAL VIAL IV STA (13:08)
[2024-07-03] MEDS ORDERED: POTASSIUM CHLORIDE 20MEQ/100ML H2O PB IV NR (16:00)
[2024-07-03 16:37] VITALS: BP 129/77; O2SAT 98
[2024-07-03] MEDS ORDERED: SUCRALFATE 1 G TABLET PO SCH (17:00)
[2024-07-03] MEDS ORDERED: PANTOPRAZOLE SODIUM 40 MG/VIAL VIAL IV SCH (21:00)
[2024-07-04 00:32] VITALS: BP 128/76; O2SAT 97
[2024-07-04] MEDS ORDERED: SODIUM CL 0.9% 50 ML IV.SOLN IV ONE (01:37)
[2024-07-04 06:29] LABS: HEMATOCRIT 29.4 % (36.0-45.00); HEMOGLOBIN 9.7 g/dL (12.0-15.00); MEAN CELL VOLUME 83.1 fL (80.00-100.00); MEAN CORPUSCULAR HEMOGLOBIN 27.4 pg (27.00-32.0); PLATELET COUNT 237 K/uL (150-450); RED BLOOD COUNT 3.54 M/uL (4.00-6.00); RED CELL DISTRIBUTION WIDTH 16.2 % (11.5-14.5)
[2024-07-04 06:55] LABS: INR 1.11; PARTIAL THROMBOPLASTIN TIME 30.8 SECONDS (22.0-34.0)
[2024-07-04 07:25] LABS: ALBUMIN 2.5 gm/dL (3.4-5.0); BILIRUBIN TOTAL 0.59 mg/dL (0.3-1.2); BILIRUBIN,CONJUGATED 0.12 mg/dL (0.0-0.2); BILIRUBIN,UNCONJUGATED 0.47 mg/dL (0.0-0.6); CALCIUM 8.9 mg/dL (8.5-10.1); CHOL HDL RATIO 3.3 (0-5.0); CREATININE SERUM 0.46 mg/dL (0.55-1.02); GFR 135.09; GLOBULINA 3.5 G/DL (2.4-3.5); MAGNESIUM 1.9 mg/dL (1.8-2.4); POTASSIUM 3.72 mEq/L (3.5-5.1)
[2024-07-04 08:34] VITALS: BP 146/88; O2SAT 96
[2024-07-04 17:03] VITALS: BP 133/78; O2SAT 96
[2024-07-05] VITALS: BP 135/84; O2SAT 94
[2024-07-05 08:00] VITALS: BP 144/85; O2SAT 95
[2024-07-05 17:55] VITALS: BP 130/77; O2SAT 95
[2024-07-06 01:27] VITALS: BP 131/79; O2SAT 100
[2024-07-06 07:21] VITALS: BP 182/100; O2SAT 91
[2024-07-06 07:58] VITALS: BP 167/97; O2SAT 95
[2024-07-06] MEDS ORDERED: KETOROLAC TROMETHAMINE 30 MG VIAL IM NR (08:15)
[2024-07-06] MEDS ORDERED: OxyCODONE HCL/APAP UD (PERCOCET) PO PRN (09:45)
[2024-07-06 10:33] VITALS: BP 141/82; O2SAT 93
[2024-07-06] MEDS ORDERED: ISOSORBIDE DINITRATE 10 MG TABLET PO NR (10:45)
[2024-07-06 16:00] VITALS: BP 126/81; O2SAT 95
[2024-07-06] MEDS ORDERED: ISOSORBIDE DINITRATE 10 MG TABLET PO SCH (17:00)
[2024-07-07] VITALS (8 sets, daily range): BP systolic 155–159; BP diastolic 85–91; O2SAT 89–97
[2024-07-07] MEDS ORDERED: ENOXAPARIN SODIUM 40 MG/0.4 ML SYRINGE SUBCUTANEO SCH (17:00)
[2024-07-07] MEDS ORDERED: KETOROLAC TROMETHAMINE 30 MG VIAL IV STA (18:22)
[2024-07-07] MEDS ORDERED: FUROsemide 40 MG/4 ML VIAL IV STA (18:22)
[2024-07-08] VITALS (9 sets, daily range): BP systolic 143–160; BP diastolic 89–95; O2SAT 90–96
[2024-07-08] MEDS ORDERED: ENOXAPARIN SODIUM 80 MG/0.8 ML SYRINGE SUBCUTANEO SCH (05:00)
[2024-07-08 07:06] LABS: HEMATOCRIT 33.1 % (36.0-45.00); HEMOGLOBIN 10.9 g/dL (12.0-15.00); MEAN CELL VOLUME 82.9 fL (80.00-100.00); MEAN CORPUSCULAR HEMOGLOBIN 27.4 pg (27.00-32.0); MEAN CORPUSCULAR HGB CONC 33.1 g/dl (32.0-36.0); PLATELET COUNT 262 K/uL (150-450); RED BLOOD COUNT 3.99 M/uL (4.00-6.00)
[2024-07-08 07:52] LABS: ALBUMIN 2.9 gm/dL (3.4-5.0); BILIRUBIN TOTAL 0.74 mg/dL (0.3-1.2); CALCIUM 8.7 mg/dL (8.5-10.1); CREATININE SERUM 0.51 mg/dL (0.55-1.02); GFR 119.92; GLOBULINA 3.9 G/DL (2.4-3.5); POTASSIUM 3.31 mEq/L (3.5-5.1); TOTAL PROTEIN 6.8 gm/dL (6.4-8.2)
[2024-07-08] MEDS ORDERED: POTASSIUM CHLORIDE IN WATER 100 ML IV NR (08:30)
[2024-07-08] MEDS ORDERED: METOPROLOL SUCCINATE 50 MG TAB.SR.24H PO SCH (09:00)
[2024-07-08] MEDS ORDERED: FUROsemide 40 MG/4 ML VIAL IV SCH (09:00)
[2024-07-08] MEDS ORDERED: AMINO ACIDS 1 EACH TABLET PO SCH (09:00)
[2024-07-08] MEDS ORDERED: Cyanocobalamin/Mecobalamin 1 TAB.SL SL SCH (20:39)
[2024-07-08] MEDS ORDERED: ALBUTEROL SULFATE 3 ML/2.5 MG AMPUL.NEB IH SCH (21:00)
[2024-07-09] VITALS (10 sets, daily range): BP systolic 114–155; BP diastolic 68–92; O2SAT 90–98
[2024-07-09] MEDS ORDERED: SOD FERRIC GLUC COMPLX/SUCROSE 62.5 MG/5 ML AMPUL IV SCH (09:00)
[2024-07-09] MEDS ORDERED: OxyCODONE HCL 5 MG TABLET (ROXICODONE) PO PRN (09:45)
[2024-07-10 01:07] VITALS: BP 116/80; O2SAT 97
[2024-07-10 04:31] VITALS: O2SAT 95
[2024-07-10 09:31] VITALS: BP 129/77; O2SAT 95
[2024-07-10 14:50] VITALS: O2SAT 90
[2024-07-10 16:00] VITALS: BP 118/79; O2SAT 95
[2024-07-10 21:24] VITALS: O2SAT 95
[2024-07-11] VITALS (9 sets, daily range): BP systolic 122–136; BP diastolic 71–83; O2SAT 90–96
[2024-07-11] MEDS ORDERED: GUAIFENESIN 600 MG TABLET.SA PO PRN (09:30)
[2024-07-11 15:57] LABS: INFLUENZA A AG NEGATIVE (NEGATIVE); INFLUENZA B AG NEGATIVE (NEGATIVE)
[2024-07-11] MEDS ORDERED: FLUTICASONE PROPIONATE 50 MCG SPRAY NASAL SCH (17:00)
[2024-07-12] VITALS (8 sets, daily range): BP systolic 115–138; BP diastolic 66–84; O2SAT 87–98
[2024-07-12] MEDS ORDERED: ORPHENADRINE CITRATE 100 MG TABLET PO SCH (09:00)
[2024-07-12 09:08] LABS: HOMOCYSTEINE 12.6 umol/L (0.0-17.2)
[2024-07-12] MEDS ORDERED: ZOLPIDEM TARTRATE 10 MG TABLET PO SCH (21:00)
[2024-07-13 03:15] VITALS: O2SAT 92
[2024-07-13 08:00] VITALS: BP 139/73; O2SAT 95
[2024-07-13 09:00] VITALS: O2SAT 90
[2024-07-13 13:27] VITALS: O2SAT 90
[2024-07-13 16:54] VITALS: BP 117/74; O2SAT 95
[2024-07-13 17:00] VITALS: O2SAT 96
[2024-07-14 00:25] VITALS: O2SAT 91
[2024-07-14 01:14] VITALS: BP 122/79; O2SAT 97
[2024-07-14 03:53] VITALS: O2SAT 90
[2024-07-14 08:29] VITALS: O2SAT 90
[2024-07-14] MEDS ORDERED: FUROsemide 40 MG/4 ML VIAL IV SCH (09:00)
[2024-07-14] MEDS ORDERED: APIXABAN 5 MG TABLET PO SCH (09:00)
[2024-07-14] MEDS ORDERED: ONDANSETRON HCL 4 MG in DEXTROSE 5 % IN WATER 50 ML IV SCH (10:29)
[2024-07-14 16:28] VITALS: BP 154/85; O2SAT 96
[2024-07-14] MEDS ORDERED: KETOROLAC TROMETHAMINE 30 MG VIAL IM NR (18:00)
[2024-07-14 19:27] LABS: AMYLASE 20 U/L (25-115); LIPASE 25 U/L (13-75)
[2024-07-14] MEDS ORDERED: METOCLOPRAMIDE HCL 5 MG/ML VIAL IV SCH (21:00)
[2024-07-15 01:10] VITALS: BP 145/75; BP 153/87; O2SAT 96
[2024-07-15 07:20] LABS: BASO % 0.5 % (0.1-1.2); EOS # 0.11 (0.04-0.54); EOS % 1.8 % (0.7-7.0); HEMOGLOBIN 10.2 g/dL (11.2-15.7); LYMPH # 2.06 (1.18-3.74); LYMPH % 33.1 % (19.3-53.1); MEAN CORPUSCULAR HEMOGLOBIN 25.8 pg (25.6-32.2); MONO # 0.96 (0.24-0.82); NEUT # 3.06 (1.56-6.13); PLATELET COUNT 219 K/uL (163-369); RED BLOOD COUNT 3.95 M/uL (3.93-5.22); RED CELL DISTRIBUTION WIDTH 14.5 % (11.6-14.4)
[2024-07-15 07:36] LABS: MONO % 15.4 % (4.7-12.5)
[2024-07-15 08:00] VITALS: BP 139/65; O2SAT 95
[2024-07-15 08:26] LABS: ALBUMIN 2.7 gm/dL (3.4-5.0); ALKALINE PHOSPHATASE 99 U/L (50-136); AST/SGOT 13 U/L (15-37); BILIRUBIN TOTAL 0.73 mg/dL (0.3-1.2); BLOOD UREA NITROGEN 7 mg/dL (7-18); BUN CREA RATIO 13 (7.0-25.0); CALCIUM 8.3 mg/dL (8.5-10.1); CARBON DIOXIDE 30 mEq/L (21-32); CHLORIDE 104 mmol/L (98-107); CREATININE SERUM 0.52 mg/dL (0.55-1.02); GFR 117.26; GLOBULINA 3.8 G/DL (2.4-3.5); GLUCOSE FASTING 137 mg/dL (65-100); OSMOLALITY SERUM 283 MOSM/KG (275-295); SODIUM 142 mmol/L (136-145); TOTAL PROTEIN 6.5 gm/dL (6.4-8.2)
[2024-07-15 08:40] LABS: ALT/SGPT < 6 U/L (12-78); ANION GAP 11 (10.0-20.0)
[2024-07-15 08:44] LABS: POTASSIUM 2.84 mEq/L (3.5-5.1)
[2024-07-15] MEDS ORDERED: POTASSIUM CHLORIDE IN WATER 40 MEQ/100 ML PIGGYBAG IV NR (12:00)
[2024-07-15] MEDS ORDERED: METOCLOPRAMIDE HCL 5 MG/ML VIAL IV STA (12:04)
[2024-07-15] MEDS ORDERED: OxyCODONE HCL 5 MG TABLET (ROXICODONE) PO PRN ×2 (16:30→17:00)
[2024-07-15 16:55] VITALS: BP 144/84; O2SAT 96
[2024-07-15] MEDS ORDERED: METOCLOPRAMIDE HCL 5 MG/ML VIAL IV SCH (17:00)
[2024-07-16] VITALS (11 sets, daily range): BP systolic 86–172; BP diastolic 46–97; O2SAT 82–100
[2024-07-16] MEDS ORDERED: ENALAPRILAT DIHYDRATE 2.5 MG/2 ML VIAL IV PRN (00:45)
[2024-07-16] MEDS ORDERED: METHYLPREDNISOLONE SOD SUCC 40 MG VIAL IV ONE (01:30)
[2024-07-16 06:34] LABS: ABG PH 7.473 (7.35-7.45); ABG PO2 360.9 mmHg (80-100); ABG pCO2 36.2 mmHg (35-45); BASE EXCESS 2.6 mmol/l; BICARBONATE 25.9 mmol/l (23-25)
[2024-07-16 06:37] LABS: allen test SATISFACTORY; mode BPAP; o2 100 %; puncture site RADIAL RIGHT
[2024-07-16 08:31] LABS: BASO % 0.4 % (0.1-1.2); HEMATOCRIT 33.4 % (34.1-44.9); HEMOGLOBIN 10.1 g/dL (11.2-15.7); LYMPH # 0.39 (1.18-3.74); LYMPH % 7.2 % (19.3-53.1); MEAN CORPUSCULAR HEMOGLOBIN 25.4 pg (25.6-32.2); MONO # 0.18 (0.24-0.82); MONO % 3.3 % (4.7-12.5); NEUT # 4.81 (1.56-6.13); NEUT % 88.5 % (34.0-71.1); PLATELET COUNT 229 K/uL (163-369); RED BLOOD COUNT 3.97 M/uL (3.93-5.22); RED CELL DISTRIBUTION WIDTH 14.6 % (11.6-14.4)
[2024-07-16 12:01] LABS: ALBUMIN 2.6 gm/dL (3.4-5.0); BILIRUBIN TOTAL 0.72 mg/dL (0.3-1.2); CALCIUM 8.3 mg/dL (8.5-10.1); CREATININE SERUM 0.62 mg/dL (0.55-1.02); GFR 95.72; GLOBULINA 4.2 G/DL (2.4-3.5); MAGNESIUM 1.5 mg/dL (1.8-2.4); PHOSPHOROUS 2.9 mg/dL (2.5-4.9); POTASSIUM 3.69 mEq/L (3.5-5.1); TOTAL PROTEIN 6.8 gm/dL (6.4-8.2)
[2024-07-16] MEDS ORDERED: MEROPENEM 500 MG/VIAL VIAL IV SCH (12:46)
[2024-07-16] MEDS ORDERED: ANIDULAFUNGIN 100 MG VIAL IV STA (13:55)
[2024-07-16] MEDS ORDERED: AA 4.25%/CALCIUM/LYTES/DEX 10% 1,000 ML CENTRAL SCH (17:00)
[2024-07-16] MEDS ORDERED: FUROsemide 40 MG/4 ML VIAL IV SCH (17:00)
[2024-07-17] VITALS (8 sets, daily range): BP systolic 129–147; BP diastolic 83–87; O2SAT 92–100
[2024-07-17] MEDS ORDERED: LORazepam 1 MG TABLET PO PRN (07:30)
[2024-07-17 08:50] LABS: ALBUMIN 2.6 gm/dL (3.4-5.0); BILIRUBIN TOTAL 0.5 mg/dL (0.3-1.2); CALCIUM 8.3 mg/dL (8.5-10.1); CREATININE SERUM 0.7 mg/dL (0.55-1.02); GFR 83.21; POTASSIUM 3.19 mEq/L (3.5-5.1); TOTAL PROTEIN 6.6 gm/dL (6.4-8.2)
[2024-07-17 09:14] LABS: MAGNESIUM 1.4 mg/dL (1.8-2.4)
[2024-07-17 09:15] LABS: PHOSPHOROUS 1.9 mg/dL (2.5-4.9)
[2024-07-17] MEDS ORDERED: MAGNESIUM SULFATE IN WATER 4 GM/100 ML PIGGYBACK IV NR (10:10)
[2024-07-17] MEDS ORDERED: POTASSIUM PHOS,M-BASIC-D-BASIC 18 MM in 0.9 % SODIUM CHLORIDE 250 ML IV NR (11:00)
[2024-07-17] MEDS ORDERED: ANIDULAFUNGIN 100 MG VIAL IV SCH (13:00)
[2024-07-17 16:23] LABS: ABG PH 7.468 (7.35-7.45); ABG PO2 65.7 mmHg (80-100); ABG pCO2 38.6 mmHg (35-45); SaO2 94.2 %
[2024-07-17 16:24] LABS: BASE EXCESS 3.5 mmol/l; BICARBONATE 27.3 mmol/l (23-25); Tco2 28.5 mmol/l; allen test SATISFACTORY; mode VENTURY MASK; o2 50 %; puncture site RADIAL RIGHT
[2024-07-18] VITALS (7 sets, daily range): BP systolic 131–135; BP diastolic 67–78; O2SAT 87–97
[2024-07-18 07:10] LABS: BASO % 0.5 % (0.1-1.2); EOS % 3.6 % (0.7-7.0); HEMATOCRIT 31.6 % (34.1-44.9); HEMOGLOBIN 9.8 g/dL (11.2-15.7); LYMPH # 1.96 (1.18-3.74); LYMPH % 34.9 % (19.3-53.1); MEAN CORPUSCULAR HEMOGLOBIN 26.6 pg (25.6-32.2); MONO # 1.18 (0.24-0.82); NEUT % 39.3 % (34.0-71.1); PLATELET COUNT 271 K/uL (163-369); RED BLOOD COUNT 3.69 M/uL (3.93-5.22); RED CELL DISTRIBUTION WIDTH 14.6 % (11.6-14.4)
[2024-07-18 07:20] LABS: INR 1.16; PARTIAL THROMBOPLASTIN TIME 27.9 SECONDS (22.0-34.0); PROTHROMBIN TIME 12.5 SECONDS (9.0-11.5)
[2024-07-18 07:48] LABS: ALBUMIN 2.5 gm/dL (3.4-5.0); BILIRUBIN TOTAL 0.51 mg/dL (0.3-1.2); BILIRUBIN,CONJUGATED 0.17 mg/dL (0.0-0.2); BILIRUBIN,UNCONJUGATED 0.34 mg/dL (0.0-0.6); CALCIUM 8.2 mg/dL (8.5-10.1); CHOL HDL RATIO 4.6 (0-5.0); CREATININE SERUM 0.61 mg/dL (0.55-1.02); GFR 97.53; GLOBULINA 3.9 G/DL (2.4-3.5); MAGNESIUM 1.8 mg/dL (1.8-2.4); PHOSPHOROUS 2.6 mg/dL (2.5-4.9); POTASSIUM 3.19 mEq/L (3.5-5.1); TOTAL PROTEIN 6.4 gm/dL (6.4-8.2)
[2024-07-18 12:09] LABS: UREA CLEARANCE 49.8 ML/MIN
[2024-07-19] VITALS (8 sets, daily range): BP systolic 120–135; BP diastolic 76–85; O2SAT 90–97
[2024-07-19] MEDS ORDERED: SOD FERRIC GLUC COMPLX/SUCROSE 62.5 MG/5 ML AMPUL IV SCH (12:00)
[2024-07-19] MEDS ORDERED: APIXABAN 5 MG TABLET PO SCH (17:00)
[2024-07-19] MEDS ORDERED: CLONAZEPAM 0.5 MG TABLET PO STA (18:19)
[2024-07-20] VITALS (9 sets, daily range): BP systolic 128–132; BP diastolic 78–83; O2SAT 85–98
[2024-07-20] MEDS ORDERED: CLONAZEPAM 0.5 MG TABLET PO SCH (09:00)
[2024-07-20 14:31] LABS: ABG PH 7.519 (7.35-7.45); ABG PO2 52.3 mmHg (80-100); ABG pCO2 40.2 mmHg (35-45); BASE EXCESS 8.5 mmol/l; SaO2 91.1 %; Tco2 33.3 mmol/l; allen test SATISFACTORY; mode ROOM AIR; o2 21 %; puncture site RADIAL RIGHT
[2024-07-20] MEDS ORDERED: MULTIVIT INFUSN,ADULT 4,VIT K 10 ML VIAL IV SCH (17:00)
[2024-07-21] VITALS (9 sets, daily range): BP systolic 116–139; BP diastolic 67–77; O2SAT 90–99
[2024-07-21] MEDS ORDERED: FUROsemide 40 MG/4 ML VIAL IV SCH (09:00)
[2024-07-21] MEDS ORDERED: SPIRONOLACTONE 25 MG TABLET PO SCH (09:00)
[2024-07-21 12:59] LABS: ALBUMIN 2.6 gm/dL (3.4-5.0); BILIRUBIN TOTAL 0.61 mg/dL (0.3-1.2); CALCIUM 8.6 mg/dL (8.5-10.1); CREATININE SERUM 0.66 mg/dL (0.55-1.02); GFR 89.06; GLOBULINA 4.2 G/DL (2.4-3.5); POTASSIUM 3.29 mEq/L (3.5-5.1); TOTAL PROTEIN 6.8 gm/dL (6.4-8.2)
[2024-07-21] MEDS ORDERED: CLONAZEPAM 0.5 MG TABLET PO PRN (13:49)
[2024-07-22] VITALS (7 sets, daily range): BP systolic 120–131; BP diastolic 74–82; O2SAT 90–100
[2024-07-22] MEDS ORDERED: OxyCODONE HCL/APAP UD (PERCOCET) PO PRN (12:15)
[2024-07-22] MEDS ORDERED: TRAMADOL HCL 50 MG TABLET PO PRN (17:00)
[2024-07-23] VITALS (7 sets, daily range): BP systolic 103–131; BP diastolic 68–77; O2SAT 94–97
[2024-07-23] MEDS ORDERED: FUROsemide 40 MG/4 ML VIAL IV SCH (09:00)
[2024-07-23] MEDS ORDERED: METOPROLOL SUCCINATE 50 MG TAB.SR.24H PO SCH (09:00)
[2024-07-24] VITALS: O2SAT 96
[2024-07-24 00:28] VITALS: BP 109/70; O2SAT 95
[2024-07-24 05:33] VITALS: O2SAT 96
[2024-07-24 07:58] VITALS: BP 107/67; O2SAT 94
[2024-07-24 08:15] LABS: CALCIUM 8.8 mg/dL (8.5-10.1); CREATININE SERUM 0.49 mg/dL (0.55-1.02); GFR 125.59; MAGNESIUM 1.5 mg/dL (1.8-2.4); PHOSPHOROUS 2.8 mg/dL (2.5-4.9); POTASSIUM 3.98 mEq/L (3.5-5.1)
[2024-07-24 08:45] LABS: BASO % 0.4 % (0.1-1.2); EOS # 0.28 (0.04-0.54); EOS % 3.1 % (0.7-7.0); HEMATOCRIT 31.2 % (34.1-44.9); HEMOGLOBIN 9.6 g/dL (11.2-15.7); LYMPH # 1.97 (1.18-3.74); LYMPH % 21.8 % (19.3-53.1); MEAN CORPUSCULAR HEMOGLOBIN 25.8 pg (25.6-32.2); MONO # 0.87 (0.24-0.82); MONO % 9.6 % (4.7-12.5); NEUT # 5.83 (1.56-6.13); NEUT % 64.7 % (34.0-71.1); PLATELET COUNT 236 K/uL (163-369); RED BLOOD COUNT 3.72 M/uL (3.93-5.22); RED CELL DISTRIBUTION WIDTH 14.5 % (11.6-14.4)
[2024-07-24] MEDS ORDERED: METOPROLOL SUCCINATE 50 MG,METOPROLOL SUCCINATE 25 MG PO SCH (09:00)
[2024-07-24 09:17] VITALS: O2SAT 94
[2024-07-24] MEDS ORDERED: MAGNESIUM SULFATE IN WATER 50 ML IV NR (12:00)
[2024-07-24 16:26] VITALS: BP 101/67; O2SAT 94
[2024-07-24] MEDS ORDERED: LIDOCAINE 5% 1 PATCH ADH. TOP SCH (17:00)
[2024-07-25] VITALS (7 sets, daily range): BP systolic 98–136; BP diastolic 66–84; O2SAT 87–96
[2024-07-25 13:09] LABS: URINE APPEARANCE Clear; URINE BILIRRUBIN Negative (NEGATIVE); URINE BLOOD Moderate; URINE COLOR Yellow; URINE GLUCOSE Negative (NEGATIVE); URINE KETONE Negative (NEGATIVE); URINE LEUKOCYTE Trace; URINE NITRATE Negative; URINE PROTEIN 30 (NEGATIVE)
[2024-07-25 13:45] LABS: URINE BACTERIA 75.8 uL (0.0-1933); URINE EPITHELIAL CELLS 2.2 uL (0.0-38.8); URINE RBC 233.9 uL (0.0-20.8); URINE WBC 21.6 uL (0.0-23.2)
[2024-07-26] VITALS (9 sets, daily range): BP systolic 115–128; BP diastolic 73–79; O2SAT 90–98
[2024-07-26 06:27] LABS: HEMATOCRIT 32.1 % (34.1-44.9); PLATELET COUNT 237 K/uL (163-369); RED BLOOD COUNT 3.85 M/uL (3.93-5.22); RED CELL DISTRIBUTION WIDTH 14.6 % (11.6-14.4)
[2024-07-26 06:41] LABS: BASO % 0.4 % (0.1-1.2); EOS # 0.09 (0.04-0.54); EOS % 0.9 % (0.7-7.0); LYMPH # 1.97 (1.18-3.74); LYMPH % 19.5 % (19.3-53.1); MONO # 0.79 (0.24-0.82); MONO % 7.8 % (4.7-12.5); NEUT # 7.17 (1.56-6.13)
[2024-07-26 07:28] LABS: CREATININE SERUM 0.56 mg/dL (0.55-1.02); GFR 107.65; MAGNESIUM 1.8 mg/dL (1.8-2.4); PHOSPHOROUS 3.1 mg/dL (2.5-4.9); POTASSIUM 4.26 mEq/L (3.5-5.1)
[2024-07-26] MEDS ORDERED: METHYLPREDNISOLONE SOD SUCC 40 MG VIAL IV ONE (09:30)
[2024-07-26] MEDS ORDERED: TRAMADOL HCL 50 MG TABLET PO PRN (10:00)
[2024-07-26] MEDS ORDERED: METHYLPREDNISOLONE SOD SUCC 40 MG VIAL ONE (10:14)
[2024-07-26 14:15] LABS: ABG PH 7.472 (7.35-7.45); ABG PO2 62.4 mmHg (80-100); ABG pCO2 33.7 mmHg (35-45); BASE EXCESS 1.1 mmol/l; BICARBONATE 24.1 mmol/l (23-25); SaO2 93.2 %; Tco2 25.4 mmol/l; allen test SATISFACTORY; mode ROOM AIR; o2 21 %; puncture site RADIAL RIGHT
[2024-07-27] VITALS: O2SAT 90
[2024-07-27 00:50] VITALS: BP 138/81; O2SAT 95
[2024-07-27] MEDS ORDERED: ONDANSETRON HCL 4 MG in DEXTROSE 5 % IN WATER 50 ML IV SCH (01:00)
[2024-07-27 05:30] VITALS: O2SAT 90
[2024-07-27 08:00] VITALS: BP 100/53; O2SAT 96
[2024-07-27] MEDS ORDERED: FUROsemide 20 MG TABLET PO SCH (09:00)
[2024-07-27] MEDS ORDERED: PREDNISONE 10 MG TABLET PO SCH (09:00)
[2024-07-27 17:19] VITALS: BP 118/87; O2SAT 96
[2024-07-28 00:59] VITALS: BP 102/69; O2SAT 97
[2024-07-28 08:00] VITALS: BP 128/88; O2SAT 96
[2024-07-28] MEDS ORDERED: BENZONATATE 100 MG CAPSULE PO STA (13:13)
[2024-07-28] MEDS ORDERED: BENZONATATE 100 MG CAPSULE PO PRN (13:15)
[2024-07-28] MEDS ORDERED: DEXAMETHASONE 0.5 MG/5 ML ML PO SCH (14:00)
[2024-07-28 16:53] VITALS: BP 155/78; O2SAT 96
[2024-07-29 00:39] VITALS: BP 138/84; O2SAT 95; O2SAT 97
[2024-07-29 03:09] VITALS: O2SAT 99
[2024-07-29 09:20] VITALS: O2SAT 96
[2024-07-29 16:05] VITALS: BP 138/86; O2SAT 96
[2024-07-29] MEDS ORDERED: MONTELUKAST SODIUM 10 MG TABLET PO SCH (17:00)
[2024-07-29] MEDS ORDERED: PREDNISONE10 MG PO (17:26)
[2024-07-29] MEDS ORDERED: METOPROLOL TART50 MG PO (17:26)
[2024-07-29] MEDS ORDERED: LIDODERM1 EACH TOP (17:26)
[2024-07-29] MEDS ORDERED: CARAFATE1 GM PO (17:26)
[2024-07-29] MEDS ORDERED: GABAPENTIN300 MG PO (17:26)
[2024-07-29] MEDS ORDERED: Neurin-Sl Tablet Sl SL (17:26)
[2024-07-29] MEDS ORDERED: DEXAMETHAS0.5 MG/51 PO (17:26)
[2024-07-29] MEDS ORDERED: SYMBICORT 16010.2 GM IH (17:26)
[2024-07-29] MEDS ORDERED: ISORDIL10 MG PO (17:26)
[2024-07-29] MEDS ORDERED: COZAAR50 MG PO (17:26)
[2024-07-29] MEDS ORDERED: ELIQUIS5 MG PO (17:26)
[2024-07-29] MEDS ORDERED: BENZONATATE100 MG PO (17:26)
[2024-07-29] MEDS ORDERED: MONTELUKAST SOD10 MG PO (17:26)
[2024-07-29] MEDS ORDERED: FUROSEMIDE20 MG PO (17:26)
[2024-07-29] MEDS ORDERED: SPIRONOLACTONE25 MG PO (17:26)
[2024-07-29] MEDS ORDERED: METOCLOPRAMIDE10 MG PO (17:26)
[2024-07-29] MEDS ORDERED: CLONAZEPAM0.5 MG PO (17:26)
[2024-07-29] MEDS ORDERED: FLONASE16 GM NASAL (17:26)
== END 2024-07-29 19:45 | disposition home or self-care (01) | DRG 356 ==
LOC: ER 15:04 → SEC-K 19:13 → SURH 22:26
PROVIDERS: General Practice; Internal Medicine; Internal Medicine Geriatric Medicine; Internal Medicine Hematology & Oncology; Internal Medicine Infectious Disease; ADMIT Internal Medicine; ATTEND Internal Medicine
PROC: BW21ZZZ Computerized Tomography (CT Scan) of Abdomen and Pelvis (ICD-10-PCS; 2024-06-13)
PROC: 8E0ZXY6 Isolation (ICD-10-PCS; 2024-06-15)
PROC: 02HV33Z Insertion of Infusion Device into Superior Vena Cava, Percutaneous Approach (ICD-10-PCS; 2024-06-15)
PROC: B54BZZZ Ultrasonography of Right Lower Extremity Veins (ICD-10-PCS; 2024-06-16)
PROC: 0W9G30Z Drainage of Peritoneal Cavity with Drainage Device, Percutaneous Approach (ICD-10-PCS; principal; 2024-06-20)
PROC: BW21YZZ Computerized Tomography (CT Scan) of Abdomen and Pelvis using Other Contrast (ICD-10-PCS; 2024-06-27)
PROC: BW21YZZ Computerized Tomography (CT Scan) of Abdomen and Pelvis using Other Contrast (ICD-10-PCS; 2024-07-04)
PROC: BW24YZZ Computerized Tomography (CT Scan) of Chest and Abdomen using Other Contrast (ICD-10-PCS; 2024-07-06)
PROC: B24BZZZ Ultrasonography of Heart with Aorta (ICD-10-PCS; 2024-07-06)
PROC: 4A12X4Z Monitoring of Cardiac Electrical Activity, External Approach (ICD-10-PCS; 2024-07-07)
PROC: B54NZZZ Ultrasonography of Left Upper Extremity Veins (ICD-10-PCS; 2024-07-08)
PROC: B54DZZZ Ultrasonography of Bilateral Lower Extremity Veins (ICD-10-PCS; 2024-07-09)
PROC: 0WPG30Z Removal of Drainage Device from Peritoneal Cavity, Percutaneous Approach (ICD-10-PCS; 2024-07-11)
PROC: CD271ZZ Tomographic (Tomo) Nuclear Medicine Imaging of Gastrointestinal Tract using Technetium 99m (Tc-99m) (ICD-10-PCS; 2024-07-13)
PROC: BW40ZZZ Ultrasonography of Abdomen (ICD-10-PCS; 2024-07-14)
DX: K57.20 Diverticulitis of large intestine with perforation and abscess without bleeding (principal); I26.99 Other pulmonary embolism without acute cor pulmonale; K65.1 Peritoneal abscess; J96.00 Acute respiratory failure, unspecified whether with hypoxia or hypercapnia; N17.9 Acute kidney failure, unspecified; Z16.12 Extended spectrum beta lactamase (ESBL) resistance; I13.0 Hypertensive heart and chronic kidney disease with heart failure and stage 1 through stage 4 chronic kidney disease, or unspecified chronic kidney disease; I50.20 Unspecified systolic (congestive) heart failure; I24.9 Acute ischemic heart disease, unspecified; I16.9 Hypertensive crisis, unspecified; E86.0 Dehydration; E11.22 Type 2 diabetes mellitus with diabetic chronic kidney disease; N18.9 Chronic kidney disease, unspecified; Z79.4 Long term (current) use of insulin; E78.5 Hyperlipidemia, unspecified; E87.6 Hypokalemia; B96.20 Unspecified Escherichia coli [E. coli] as the cause of diseases classified elsewhere; F43.21 Adjustment disorder with depressed mood; M06.80 Other specified rheumatoid arthritis, unspecified site; D63.1 Anemia in chronic kidney disease; M62.830 Muscle spasm of back; E11.43 Type 2 diabetes mellitus with diabetic autonomic (poly)neuropathy; K31.84 Gastroparesis; F41.0 Panic disorder [episodic paroxysmal anxiety]; I34.0 Nonrheumatic mitral (valve) insufficiency

== ENCOUNTER 2024-08-12 15:46 | Inpatient (IN) | payer OTHER ==
[~2024-08-12] VITALS: Ht 162.6 cm; Wt 74.8 kg
[~2024-08-12 15:46] MED LIST changes: +BENZONATATE100 MG PO; +CARAFATE1 GM PO; +CLONAZEPAM0.5 MG PO; +COZAAR50 MG PO; +DEXAMETHAS0.5 MG/51 PO; +ELIQUIS5 MG PO; +FLONASE16 GM NASAL; +FUROSEMIDE20 MG PO; +GABAPENTIN300 MG PO; +ISORDIL10 MG PO; +LIDODERM1 EACH TOP; +METOCLOPRAMIDE10 MG PO; +MONTELUKAST SOD10 MG PO; +Neurin-Sl Tablet Sl SL; +PREDNISONE10 MG PO; +SPIRONOLACTONE25 MG PO; +SYMBICORT 16010.2 GM IH
--- NOTE | 2024-08-12 16:12 | NUR ---
SE RECIBE PTE ALERTA, ORIENTADA X3. PTE REFIERE DOLOR ABDOMINAL DESDE GENOVEVA, NAUSEAS, VOMITOS X3 Y DIARREAS X5 EN EL UNIQUE DE HOY. SE MIDEN S/V Y SE UBICA.
[2024-08-12] MEDS ORDERED: CIPROFLOXACIN IN 5 % DEXTROSE 400 MG/200 ML PIGGYBAG IV ONE ×2 (16:30→16:35)
[2024-08-12] MEDS ORDERED: METRONIDAZOLE/SODIUM CHLORIDE 500 MG/100 ML PIGGYBACK IV ONE ×2 (16:30→16:36)
[2024-08-12] MEDS ORDERED: FAMOtidine 10 MG/ML (4ML VIAL) IV ONE (16:30)
[2024-08-12] MEDS ORDERED: KETOROLAC TROMETHAMINE 30 MG VIAL ONE (16:35)
[2024-08-12] MEDS ORDERED: FAMOTIDINE/PF 20 MG/2 ML VIAL ONE (16:36)
[2024-08-12] MEDS ORDERED: KETOROLAC TROMETHAMINE 30 MG VIAL IV ONE (16:45)
[2024-08-12] MEDS ORDERED: 0.9 % SODIUM CHLORIDE 1,000 ML IV ONE (16:45)
--- NOTE | 2024-08-12 16:48 | NUR ---
SE ORIENTA A PACIENTE Y FAMILIAR SOBRE TX MEDICO, REFIERE ENTENDER. SE COLECTAN MUESTRAS DE LABORATORIO BAJO MEDIDAS ASEPTICAS. SE ADMINISTRAN MEDICAMENTOS MAXIMINO ORDEN MEDICA. SE COORDINA CT. PACIENTE MANEJADA POR . PENDIENTE RE-EVALUACION MEDICA.
[2024-08-12 16:56] LABS: BASO % 0.3 % (0.1-1.2); EOS # 0.01 (0.04-0.54); EOS % 0.1 % (0.7-7.0); LYMPH # 1.61 (1.18-3.74); LYMPH % 15.8 % (19.3-53.1); MEAN PLATELET VOLUME 9.20 fl (9.4-12.4); MONO # 1.33 (0.24-0.82); NEUT # 7.16 (1.56-6.13); NEUT % 70.2 % (34.0-71.1); RED CELL DISTRIBUTION WIDTH 15.3 % (11.6-14.4)
[2024-08-12 16:59] LABS: MONO % 13.0 % (4.7-12.5)
[2024-08-12 17:23] LABS: INR 1.31
[2024-08-12 17:30] LABS: ALT/SGPT 17.0 U/L (12-78); AST/SGOT 11.0 U/L (15-37); BILIRUBIN TOTAL 0.62 mg/dL (0.3-1.2); BUN CREA RATIO 18.0 (7.0-25.0); CREATININE SERUM 0.88 mg/dL (0.55-1.02); GFR 63.9; GLOBULINA 5.2 G/DL (2.4-3.5); GLUCOSE FASTING 164.0 mg/dL (65-100); OSMOLALITY SERUM 275.0 MOSM/KG (275-295)
[2024-08-12] MEDS ORDERED: ACETAMINOPHEN 325 MG TABLET PO PRN (21:45)
[2024-08-12] MEDS ORDERED: 0.9 % SODIUM CHLORIDE 1,000 ML IV SCH (21:45)
[2024-08-12] MEDS ORDERED: DEXTROSE 50 % IN WATER 0.5 G/ML DISP.SYRIN IV PRN (22:30)
[2024-08-12] MEDS ORDERED: INSULIN LISPRO 1,000 UNIT/10 ML UNITS SUBCUTANEO PRN (22:30)
[2024-08-12] MEDS ORDERED: MORPHINE SULFATE 4 MG/ML CARTRIDGE IV PRN (23:00)
[2024-08-13] MEDS ORDERED: MEROPENEM 500 MG/VIAL VIAL IV SCH
[2024-08-13 03:03] VITALS: BP 111/67; O2SAT 96
[2024-08-13 08:00] VITALS: BP 98/65; O2SAT 97
[2024-08-13] MEDS ORDERED: ISOSORBIDE DINITRATE 5 MG TABLET PO SCH (09:00)
[2024-08-13] MEDS ORDERED: METOPROLOL TARTRATE 50 MG TABLET PO SCH (09:00)
[2024-08-13] MEDS ORDERED: GABAPENTIN 300 MG CAPSULE PO SCH (09:00)
[2024-08-13] MEDS ORDERED: LOSARTAN POTASSIUM 50 MG TABLET PO SCH (09:00)
[2024-08-13] MEDS ORDERED: ENOXAPARIN SODIUM 60 MG/0.6 ML SYRINGE SUBCUTANEO SCH (09:00)
[2024-08-13] MEDS ORDERED: SPIRONOLACTONE 25 MG TABLET PO SCH (09:00)
[2024-08-13] MEDS ORDERED: PREDNISONE 5 MG TABLET PO SCH (09:00)
[2024-08-13] MEDS ORDERED: Cyanocobalamin/Mecobalamin 1 TAB.SL SL SCH (09:00)
[2024-08-13] MEDS ORDERED: CLONAZEPAM 0.5 MG TABLET PO STA (11:05)
[2024-08-13] MEDS ORDERED: ACETAMINOPHEN 500 MG GEL..CAP PO PRN (11:45)
[2024-08-13] MEDS ORDERED: FLUCONAZOLE IN NACL,ISO-OSM 200 ML IV SCH (12:00)
[2024-08-13 14:31] VITALS: O2SAT 90
[2024-08-13 16:00] VITALS: BP 100/67; O2SAT 96
[2024-08-13 17:00] VITALS: O2SAT 99
[2024-08-13] MEDS ORDERED: AA 4.25%/CAL/LYTES/DEXT 5% 1,000 ML PERIFERAL SCH (17:00)
[2024-08-13] MEDS ORDERED: MONTELUKAST SODIUM 10 MG TABLET PO SCH (17:00)
[2024-08-13 21:00] VITALS: O2SAT 98
[2024-08-13] MEDS ORDERED: ENOXAPARIN SODIUM 80 MG/0.8 ML SYRINGE SUBCUTANEO SCH (21:00)
[2024-08-13] MEDS ORDERED: CLONAZEPAM 0.5 MG TABLET PO SCH (21:00)
[2024-08-13] MEDS ORDERED: PANTOPRAZOLE SODIUM 40 MG/VIAL VIAL IV SCH (21:00)
[2024-08-13 23:00] LABS: URINE APPEARANCE Clear; URINE BILIRRUBIN Negative (NEGATIVE); URINE BLOOD Trace; URINE COLOR Yellow; URINE KETONE 15 (NEGATIVE); URINE LEUKOCYTE Negative; URINE NITRATE Negative; URINE PROTEIN 30 (NEGATIVE); URINE UROBILINOGEN 2.0 E.U./dl
[2024-08-13 23:07] LABS: URINE BACTERIA 18.3 uL (0.0-1933); URINE EPITHELIAL CELLS 8.3 uL (0.0-38.8); URINE RBC 15.7 uL (0.0-20.8); URINE WBC 12.8 uL (0.0-23.2)
[2024-08-13 23:09] LABS: TYPE CELLS SQUAMOUS; URINE CAST 0.00 uL (0.0-1.40); URINE GLUCOSE >=1000 MG/DL (NEGATIVE)
[2024-08-14] VITALS (9 sets, daily range): BP systolic 117–124; BP diastolic 66–82; O2SAT 90–97
[2024-08-14] MEDS ORDERED: CLONAZEPAM 0.5 MG TABLET PO SCH (09:00)
[2024-08-14] MEDS ORDERED: OxyCODONE HCL/APAP UD (PERCOCET) PO PRN (13:30)
[2024-08-14] MEDS ORDERED: GABAPENTIN 300 MG CAPSULE PO SCH (21:00)
[2024-08-15] VITALS (9 sets, daily range): BP systolic 109–123; BP diastolic 66–75; O2SAT 90–97
[2024-08-15 07:34] LABS: BASO % 0.2 % (0.1-1.2); EOS # 0.06 (0.04-0.54); EOS % 0.7 % (0.7-7.0); LYMPH # 2.35 (1.18-3.74); LYMPH % 27.5 % (19.3-53.1); MEAN PLATELET VOLUME 9.10 fl (9.4-12.4); MONO # 0.89 (0.24-0.82); MONO % 10.4 % (4.7-12.5); NEUT # 5.18 (1.56-6.13); NEUT % 60.5 % (34.0-71.1); RED CELL DISTRIBUTION WIDTH 15.2 % (11.6-14.4)
[2024-08-15 07:55] LABS: INR 1.24
[2024-08-15 08:09] LABS: BUN CREA RATIO 21.0 (7.0-25.0); CREATININE SERUM 0.43 mg/dL (0.55-1.02); GFR 146.02; GLUCOSE FASTING 150.0 mg/dL (65-100); OSMOLALITY SERUM 274.0 MOSM/KG (275-295)
[2024-08-15 08:11] LABS: ALT/SGPT 9.0 U/L (12-78); AST/SGOT 6.0 U/L (15-37); BILIRUBIN TOTAL 0.42 mg/dL (0.3-1.2); BILIRUBIN,CONJUGATED 0.17 mg/dL (0.0-0.2); CHOL HDL RATIO 5.4 (0-5.0); HDL 27.0 mg/dl (40-60); LDL 82.0 mg/dl (0-130); VLDL 35.0 (0-39)
[2024-08-15 08:22] LABS: BAND MAN 5.0 %; LYMPHOCYTE MAN 29.0 %; MONOCYTE MAN 1.0 %; NEUTROPHILS MAN 65.0 %
[2024-08-15] MEDS ORDERED: LACTOBACILLUS ACIDOPHILUS 1 CAP CAP PO SCH (09:33)
[2024-08-15] MEDS ORDERED: OxyCODONE HCL ER 10MG TAB (OxyCONTIN) PO PRN (12:30)
[2024-08-15] MEDS ORDERED: MAGNESIUM SULFATE IN WATER 4 GM/100 ML PIGGYBACK IV NR (12:50)
[2024-08-15] MEDS ORDERED: VANCOMYCIN HCL 125 MG/7.5 ML BLIST.PACK PO SCH (17:00)
[2024-08-15] MEDS ORDERED: ISOSORBIDE DINITRATE 10 MG TABLET PO SCH (17:00)
[2024-08-15] MEDS ORDERED: fentaNYL CITRATE 50 MCG/ML AMPUL IV PUSH ONE (19:15)
[2024-08-15] MEDS ORDERED: MIDAZOLAM HCL 2 MG/2 ML VIAL IV PUSH ONE (19:15)
[2024-08-16] VITALS (8 sets, daily range): BP systolic 113–120; BP diastolic 71–76; O2SAT 90–97
[2024-08-16] MEDS ORDERED: VANCOMYCIN HCL 125 MG CAPSULE PO SCH (13:00)
[2024-08-17] VITALS (9 sets, daily range): BP systolic 104–135; BP diastolic 59–80; O2SAT 94–97
[2024-08-17] MEDS ORDERED: PREDNISONE 10 MG TABLET PO SCH (09:00)
[2024-08-17 10:01] LABS: BASO % 0.2 % (0.1-1.2); EOS # 0.12 (0.04-0.54); EOS % 2.7 % (0.7-7.0); LYMPH # 1.89 (1.18-3.74); LYMPH % 43.0 % (19.3-53.1); MEAN PLATELET VOLUME 9.10 fl (9.4-12.4); MONO # 0.52 (0.24-0.82); MONO % 11.8 % (4.7-12.5); NEUT # 1.85 (1.56-6.13); NEUT % 42.1 % (34.0-71.1); RED CELL DISTRIBUTION WIDTH 14.9 % (11.6-14.4)
[2024-08-17 10:14] LABS: ERYTHROCYTE SEDIMENTATION RATE 113 mm/hr (0-30)
[2024-08-17 10:46] LABS: ALT/SGPT 11.0 U/L (12-78); AST/SGOT 11.0 U/L (15-37); BILIRUBIN TOTAL 0.33 mg/dL (0.3-1.2); BUN CREA RATIO 26.0 (7.0-25.0); CREATININE SERUM 0.31 mg/dL (0.55-1.02); GFR 213.01; GLOBULINA 4.6 G/DL (2.4-3.5); GLUCOSE FASTING 150.0 mg/dL (65-100); OSMOLALITY SERUM 282.0 MOSM/KG (275-295)
[2024-08-17] MEDS ORDERED: SILVER SULFADIAZINE 50 GM,NYSTATIN 30 GM,ZINC OXIDE 30 GM TOP SCH (17:00)
[2024-08-17] MEDS ORDERED: LINEZOLID IN DEXTROSE 5% 300 ML IV SCH (17:00)
[2024-08-18 00:11] VITALS: O2SAT 96
[2024-08-18 01:02] VITALS: BP 103/69; O2SAT 97
[2024-08-18 07:30] VITALS: BP 117/73; O2SAT 97
[2024-08-18 09:00] VITALS: O2SAT 93
[2024-08-18 13:19] VITALS: O2SAT 96
[2024-08-18 16:55] VITALS: BP 118/69; O2SAT 95
[2024-08-18] MEDS ORDERED: AMPICILLIN SODIUM/SULBACTAM NA 3,000 MG in 0.9 % SODIUM CHLORIDE 100 ML IV SCH (17:00)
[2024-08-19] VITALS: BP 120/77; O2SAT 94
[2024-08-19 09:27] VITALS: BP 140/82; O2SAT 93
[2024-08-19 10:14] VITALS: O2SAT 90
[2024-08-19 14:21] VITALS: O2SAT 90
[2024-08-19 16:00] VITALS: BP 120/80; O2SAT 99
[2024-08-20 04:03] VITALS: BP 133/74; O2SAT 100
[2024-08-20 06:17] VITALS: O2SAT 90
[2024-08-20 07:46] LABS: ERYTHROCYTE SEDIMENTATION RATE 91 mm/hr (0-30)
[2024-08-20 08:00] LABS: ALT/SGPT 7.0 U/L (12-78); AST/SGOT 8.0 U/L (15-37); BILIRUBIN TOTAL 0.47 mg/dL (0.3-1.2); BUN CREA RATIO 28.0 (7.0-25.0); CREATININE SERUM 0.36 mg/dL (0.55-1.02); GFR 179.25; GLOBULINA 3.9 G/DL (2.4-3.5); GLUCOSE FASTING 166.0 mg/dL (65-100); OSMOLALITY SERUM 277.0 MOSM/KG (275-295)
[2024-08-20 08:05] LABS: BASO % 0.4 % (0.1-1.2); EOS # 0.14 (0.04-0.54); EOS % 2.0 % (0.7-7.0); LYMPH # 2.38 (1.18-3.74); LYMPH % 34.0 % (19.3-53.1); MEAN PLATELET VOLUME 9.40 fl (9.4-12.4); MONO # 0.80 (0.24-0.82); MONO % 11.4 % (4.7-12.5); NEUT # 3.63 (1.56-6.13); NEUT % 51.8 % (34.0-71.1); RED CELL DISTRIBUTION WIDTH 15.6 % (11.6-14.4)
[2024-08-20 08:19] VITALS: BP 124/64; O2SAT 93
[2024-08-20 09:09] VITALS: O2SAT 90
[2024-08-20] MEDS ORDERED: NALOXONE HCL 0.4 MG/ML AMPUL IV NR (13:45)
[2024-08-20 16:53] VITALS: BP 124/70; O2SAT 91
[2024-08-21] VITALS (7 sets, daily range): BP systolic 99–116; BP diastolic 65–75; O2SAT 93–100
[2024-08-21 07:41] LABS: BUN CREA RATIO 30.0 (7.0-25.0); CREATININE SERUM 0.33 mg/dL (0.55-1.02); GFR 198.18; GLUCOSE FASTING 186.0 mg/dL (65-100); OSMOLALITY SERUM 285.0 MOSM/KG (275-295)
[2024-08-21 08:09] LABS: BASO % 0.2 % (0.1-1.2); EOS # 0.10 (0.04-0.54); EOS % 1.8 % (0.7-7.0); LYMPH # 1.54 (1.18-3.74); LYMPH % 27.6 % (19.3-53.1); MEAN PLATELET VOLUME 9.00 fl (9.4-12.4); MONO # 0.70 (0.24-0.82); NEUT # 3.19 (1.56-6.13); NEUT % 57.3 % (34.0-71.1); RED CELL DISTRIBUTION WIDTH 15.5 % (11.6-14.4)
[2024-08-21 08:26] LABS: MONO % 12.6 % (4.7-12.5)
[2024-08-21] MEDS ORDERED: MAGNESIUM SULFATE IN WATER 4 GM/100 ML PIGGYBACK IV NR (11:30)
[2024-08-21] MEDS ORDERED: POTASSIUM PHOS,M-BASIC-D-BASIC 15 MM in 0.9 % SODIUM CHLORIDE 250 ML IV NR (12:00)
[2024-08-21] MEDS ORDERED: TRAMADOL HCL 50 MG TABLET PO PRN (14:45)
[2024-08-22] VITALS (7 sets, daily range): BP systolic 107–123; BP diastolic 68–83; O2SAT 95–100
[2024-08-22 06:11] LABS: BASO % 0.1 % (0.1-1.2); EOS # 0.14 (0.04-0.54); EOS % 2.1 % (0.7-7.0); LYMPH # 1.79 (1.18-3.74); LYMPH % 26.4 % (19.3-53.1); MEAN PLATELET VOLUME 8.90 fl (9.4-12.4); MONO # 0.73 (0.24-0.82); MONO % 10.8 % (4.7-12.5); NEUT # 4.10 (1.56-6.13); NEUT % 60.3 % (34.0-71.1); RED CELL DISTRIBUTION WIDTH 15.2 % (11.6-14.4)
[2024-08-22 06:36] LABS: INR 1.2
[2024-08-22 06:51] LABS: ALT/SGPT 7.0 U/L (12-78); AST/SGOT 8.0 U/L (15-37); BILIRUBIN TOTAL 0.38 mg/dL (0.3-1.2); BUN CREA RATIO 24.0 (7.0-25.0); CHOL HDL RATIO 5.5 (0-5.0); CREATININE SERUM 0.33 mg/dL (0.55-1.02); GFR 198.18; GLOBULINA 4.1 G/DL (2.4-3.5); GLUCOSE FASTING 132.0 mg/dL (65-100); HDL 28.0 mg/dl (40-60); LDL 80.0 mg/dl (0-130); OSMOLALITY SERUM 283.0 MOSM/KG (275-295); VLDL 45.0 (0-39)
[2024-08-22] MEDS ORDERED: POTASSIUM PHOS,M-BASIC-D-BASIC 18 MM in 0.9 % SODIUM CHLORIDE 250 ML IV NR (13:00)
[2024-08-22] MEDS ORDERED: ONDANSETRON HCL 2 MG/ML VIAL IV SCH (17:00)
[2024-08-22] MEDS ORDERED: SOD FERRIC GLUC COMPLX/SUCROSE 62.5 MG in 0.9 % SODIUM CHLORIDE 50 ML IV SCH (17:00)
[2024-08-23] VITALS (8 sets, daily range): BP systolic 108–138; BP diastolic 60–84; O2SAT 96–99
[2024-08-23] MEDS ORDERED: GABAPENTIN 400 MG CAPSULE PO SCH (12:00)
[2024-08-24] VITALS (8 sets, daily range): BP systolic 111–122; BP diastolic 55–69; O2SAT 80–99
[2024-08-24] MEDS ORDERED: CLONAZEPAM 0.5 MG TABLET PO SCH (09:00)
[2024-08-24] MEDS ORDERED: SERTRALINE HCL 50 MG TABLET PO SCH (09:00)
[2024-08-25] VITALS (9 sets, daily range): BP systolic 134–180; BP diastolic 78–80; O2SAT 94–98
[2024-08-26] VITALS: O2SAT 94
[2024-08-26 01:05] VITALS: BP 128/63; O2SAT 95
[2024-08-26 06:02] VITALS: O2SAT 98
[2024-08-26 07:57] LABS: BASO % 0.6 % (0.1-1.2); EOS # 0.13 (0.04-0.54); EOS % 2.1 % (0.7-7.0); LYMPH # 1.91 (1.18-3.74); LYMPH % 30.9 % (19.3-53.1); MEAN PLATELET VOLUME 8.40 fl (9.4-12.4); MONO # 0.82 (0.24-0.82); NEUT # 3.27 (1.56-6.13); NEUT % 52.9 % (34.0-71.1); RED CELL DISTRIBUTION WIDTH 16.3 % (11.6-14.4)
[2024-08-26 08:03] LABS: MONO % 13.2 % (4.7-12.5)
[2024-08-26 08:47] VITALS: O2SAT 98
[2024-08-26 08:49] VITALS: BP 130/89; O2SAT 97
[2024-08-26] MEDS ORDERED: MORPHINE SULFATE 4 MG/ML CARTRIDGE IV PRN (12:00)
[2024-08-26] MEDS ORDERED: SUGAMMADEX SODIUM 200 MG/2 ML VIAL IV ONE (12:15)
[2024-08-26] MEDS ORDERED: HYOSCYAMINE SULFATE 0.125 MG TAB.SUBL SL SCH (13:00)
[2024-08-26] MEDS ORDERED: MORPHINE SULFATE 4 MG/ML VIAL IV ONE (13:00)
[2024-08-26] MEDS ORDERED: BENZONATATE 100 MG CAPSULE PO PRN (16:30)
[2024-08-26 21:13] VITALS: O2SAT 100
[2024-08-27] VITALS (7 sets, daily range): BP systolic 124–137; BP diastolic 70–74; O2SAT 86–99
[2024-08-28] VITALS (9 sets, daily range): BP systolic 112–131; BP diastolic 66–74; O2SAT 47–99
[2024-08-28] MEDS ORDERED: MORPHINE SULFATE 4 MG/ML CARTRIDGE IV PRN (14:15)
[2024-08-29] VITALS (7 sets, daily range): BP systolic 124–127; BP diastolic 72–76; O2SAT 90–97
[2024-08-29 06:30] LABS: INR 1.15
[2024-08-29 06:34] LABS: BASO % 0.4 % (0.1-1.2); EOS # 0.10 (0.04-0.54); EOS % 2.1 % (0.7-7.0); LYMPH # 2.02 (1.18-3.74); LYMPH % 43.3 % (19.3-53.1); MEAN PLATELET VOLUME 8.80 fl (9.4-12.4); MONO # 0.55 (0.24-0.82); MONO % 11.8 % (4.7-12.5); NEUT # 1.97 (1.56-6.13); NEUT % 42.2 % (34.0-71.1); RED CELL DISTRIBUTION WIDTH 16.0 % (11.6-14.4)
[2024-08-29 06:51] LABS: ALT/SGPT 8.0 U/L (12-78); AST/SGOT 9.0 U/L (15-37); BILIRUBIN TOTAL 0.4 mg/dL (0.3-1.2); BILIRUBIN,CONJUGATED 0.11 mg/dL (0.0-0.2); BUN CREA RATIO 24.0 (7.0-25.0); CREATININE SERUM 0.34 mg/dL (0.55-1.02); GFR 191.47; GLUCOSE FASTING 165.0 mg/dL (65-100); OSMOLALITY SERUM 283.0 MOSM/KG (275-295)
[2024-08-30] VITALS (9 sets, daily range): BP systolic 117–136; BP diastolic 69–76; O2SAT 84–100
[2024-08-30] MEDS ORDERED: FLUCONAZOLE 200 MG TABLET PO SCH (09:00)
[2024-08-30] MEDS ORDERED: DEXTROSE 50 % IN WATER 0.5 G/ML VIAL IV PRN (14:30)
[2024-08-31] VITALS (7 sets, daily range): BP systolic 133–157; BP diastolic 77–85; O2SAT 90–96
[2024-09-01] VITALS (8 sets, daily range): BP systolic 110–133; BP diastolic 69–77; O2SAT 90–98
[2024-09-02] VITALS (8 sets, daily range): BP systolic 119–127; BP diastolic 73–77; O2SAT 90–98
[2024-09-02 07:33] LABS: BASO % 0.9 % (0.1-1.2); EOS # 0.31 (0.04-0.54); EOS % 4.7 % (0.7-7.0); LYMPH # 3.43 (1.18-3.74); LYMPH % 51.9 % (19.3-53.1); MEAN PLATELET VOLUME 8.90 fl (9.4-12.4); MONO # 0.77 (0.24-0.82); MONO % 11.6 % (4.7-12.5); NEUT # 2.03 (1.56-6.13); NEUT % 30.7 % (34.0-71.1); RED CELL DISTRIBUTION WIDTH 16.7 % (11.6-14.4)
[2024-09-02 07:45] LABS: ERYTHROCYTE SEDIMENTATION RATE 82 mm/hr (0-30)
[2024-09-02 07:59] LABS: ALT/SGPT 13.0 U/L (12-78); AST/SGOT 14.0 U/L (15-37); BILIRUBIN TOTAL 0.41 mg/dL (0.3-1.2); BUN CREA RATIO 23.0 (7.0-25.0); CREATININE SERUM 0.31 mg/dL (0.55-1.02); GFR 213.01; GLOBULINA 3.9 G/DL (2.4-3.5); GLUCOSE FASTING 97.0 mg/dL (65-100); OSMOLALITY SERUM 283.0 MOSM/KG (275-295)
[2024-09-03] VITALS (8 sets, daily range): BP systolic 105–125; BP diastolic 69–77; O2SAT 94–99
[2024-09-03] MEDS ORDERED: APIXABAN 5 MG TABLET PO NR (12:00)
[2024-09-03] MEDS ORDERED: APIXABAN 5 MG TABLET PO SCH (17:00)
[2024-09-04] VITALS (8 sets, daily range): BP systolic 96–119; BP diastolic 62–74; O2SAT 90–100
[2024-09-04] MEDS ORDERED: MUPIROCIN 22 GM OINT..GM TUBE TOP SCH (17:00)
[2024-09-04] MEDS ORDERED: BENZOCAINE/MENTHOL 90 ML BOTTLE TOP SCH (18:00)
[2024-09-05] VITALS: BP 107/65; O2SAT 90; O2SAT 95
[2024-09-05 05:50] VITALS: O2SAT 90
[2024-09-05 06:53] LABS: BASO % 1.0 % (0.1-1.2); EOS # 0.22 (0.04-0.54); EOS % 3.0 % (0.7-7.0); LYMPH # 3.96 (1.18-3.74); LYMPH % 54.1 % (19.3-53.1); MEAN PLATELET VOLUME 9.30 fl (9.4-12.4); MONO # 0.71 (0.24-0.82); MONO % 9.7 % (4.7-12.5); NEUT # 2.35 (1.56-6.13); NEUT % 32.1 % (34.0-71.1); RED CELL DISTRIBUTION WIDTH 17.0 % (11.6-14.4)
[2024-09-05 07:05] LABS: ERYTHROCYTE SEDIMENTATION RATE 80 mm/hr (0-30)
[2024-09-05 07:13] LABS: ALT/SGPT 12.0 U/L (12-78); AST/SGOT 11.0 U/L (15-37); BILIRUBIN TOTAL 0.42 mg/dL (0.3-1.2); BUN CREA RATIO 16.0 (7.0-25.0); CREATININE SERUM 0.44 mg/dL (0.55-1.02); GFR 142.2; GLOBULINA 4.0 G/DL (2.4-3.5); GLUCOSE FASTING 83.0 mg/dL (65-100); OSMOLALITY SERUM 282.0 MOSM/KG (275-295)
[2024-09-05 08:00] VITALS: BP 132/76; O2SAT 94
[2024-09-05 08:08] VITALS: O2SAT 93
[2024-09-05 16:00] VITALS: BP 112/75; O2SAT 97
[2024-09-05 23:55] VITALS: O2SAT 95
[2024-09-06] VITALS (8 sets, daily range): BP systolic 121–135; BP diastolic 71–80; O2SAT 93–98
[2024-09-06] MEDS ORDERED: MECLIZINE HCL 12.5 MG TABLET PO PRN (11:30)
[2024-09-07 01:13] VITALS: O2SAT 97
[2024-09-07 02:13] VITALS: BP 130/70; O2SAT 98
[2024-09-07 04:17] VITALS: O2SAT 90
[2024-09-07 08:00] VITALS: BP 136/82; O2SAT 92; O2SAT 94
[2024-09-07] MEDS ORDERED: MIDAZOLAM HCL 2 MG/2 ML VIAL IV PUSH ONE (16:45)
[2024-09-07] MEDS ORDERED: fentaNYL CITRATE 50 MCG/ML AMPUL IV PUSH ONE (16:45)
[2024-09-07 17:29] VITALS: BP 105/67; O2SAT 97
[2024-09-08 01:31] VITALS: BP 116/64; O2SAT 96
[2024-09-08 07:27] LABS: BASO % 0.9 % (0.1-1.2); EOS # 0.33 (0.04-0.54); EOS % 5.1 % (0.7-7.0); LYMPH # 3.43 (1.18-3.74); LYMPH % 52.6 % (19.3-53.1); MEAN PLATELET VOLUME 9.00 fl (9.4-12.4); MONO # 0.62 (0.24-0.82); MONO % 9.5 % (4.7-12.5); NEUT # 2.07 (1.56-6.13); NEUT % 31.7 % (34.0-71.1); RED CELL DISTRIBUTION WIDTH 16.9 % (11.6-14.4)
[2024-09-08 08:00] VITALS: BP 137/79; O2SAT 96
[2024-09-08 08:04] LABS: ALT/SGPT 13.0 U/L (12-78); AST/SGOT 12.0 U/L (15-37); BILIRUBIN TOTAL 0.4 mg/dL (0.3-1.2); BUN CREA RATIO 27.0 (7.0-25.0); CREATININE SERUM 0.37 mg/dL (0.55-1.02); GFR 173.67; GLOBULINA 3.8 G/DL (2.4-3.5); GLUCOSE FASTING 96.0 mg/dL (65-100); OSMOLALITY SERUM 286.0 MOSM/KG (275-295)
[2024-09-08 14:04] VITALS: O2SAT 98
[2024-09-08 16:32] VITALS: O2SAT 94
[2024-09-08 18:13] VITALS: BP 109/65; O2SAT 96
[2024-09-09] VITALS (7 sets, daily range): BP systolic 124–135; BP diastolic 73–75; O2SAT 94–98
[2024-09-09] MEDS ORDERED: Neurin-Sl Tablet Sl SL (15:10)
[2024-09-09] MEDS ORDERED: AMOX1TAB5 PO (15:10)
[2024-09-09] MEDS ORDERED: METOPROLOL TART50 MG PO (15:10)
[2024-09-09] MEDS ORDERED: DERMOPLAST PAIN78 GM TOP (15:10)
[2024-09-09] MEDS ORDERED: COZAAR50 MG PO (15:10)
[2024-09-09] MEDS ORDERED: FLUCONAZOLE100 MG PO (15:10)
[2024-09-09] MEDS ORDERED: ELIQUIS5 MG PO (15:10)
[2024-09-09] MEDS ORDERED: INTESTINEX680 M1 PO (15:10)
[2024-09-09] MEDS ORDERED: MECLIZINE HCL12.5 MG PO (15:10)
[2024-09-09] MEDS ORDERED: CLONAZEPAM0.5 MG PO (15:10)
[2024-09-09] MEDS ORDERED: ISORDIL10 MG PO (15:10)
[2024-09-09] MEDS ORDERED: MONTELUKAST SOD10 MG PO (15:10)
[2024-09-09] MEDS ORDERED: MUPIROCIN22 GM TOP (15:10)
[2024-09-09] MEDS ORDERED: NeuRONTin 400MG CAPS PO (15:10)
[2024-09-09] MEDS ORDERED: FUROSEMIDE20 MG PO (15:10)
[2024-09-09] MEDS ORDERED: SPIRONOLACTONE25 MG PO (15:10)
[2024-09-09] MEDS ORDERED: SERTRALINE HCL50 MG PO (15:10)
== END 2024-09-09 18:45 | disposition home or self-care (01) | DRG 329 ==
LOC: ER 15:46 → SURG 22:24 → SURH 22:24 → SURG 08-13 12:55 → SURH 09-03 13:19
PROVIDERS: General Practice; Internal Medicine; Internal Medicine Geriatric Medicine; Surgery; ADMIT Internal Medicine; ATTEND Internal Medicine
PROC: BW21YZZ Computerized Tomography (CT Scan) of Abdomen and Pelvis using Other Contrast (ICD-10-PCS; 2024-08-12)
PROC: 4A12X4Z Monitoring of Cardiac Electrical Activity, External Approach (ICD-10-PCS; 2024-08-13)
PROC: 8E0ZXY6 Isolation (ICD-10-PCS; 2024-08-13)
PROC: 02HV33Z Insertion of Infusion Device into Superior Vena Cava, Percutaneous Approach (ICD-10-PCS; 2024-08-14)
PROC: 0W9G30Z Drainage of Peritoneal Cavity with Drainage Device, Percutaneous Approach (ICD-10-PCS; 2024-08-15)
PROC: B54MZZZ Ultrasonography of Right Upper Extremity Veins (ICD-10-PCS; 2024-08-15)
PROC: B24BZZZ Ultrasonography of Heart with Aorta (ICD-10-PCS; 2024-08-15)
PROC: BW21YZZ Computerized Tomography (CT Scan) of Abdomen and Pelvis using Other Contrast (ICD-10-PCS; 2024-08-22)
PROC: 30233N1 Transfusion of Nonautologous Red Blood Cells into Peripheral Vein, Percutaneous Approach (ICD-10-PCS; 2024-08-25)
PROC: 0D1L0Z4 Bypass Transverse Colon to Cutaneous, Open Approach (ICD-10-PCS; principal; 2024-08-26 13:00)
PROC: BW21YZZ Computerized Tomography (CT Scan) of Abdomen and Pelvis using Other Contrast (ICD-10-PCS; 2024-08-29)
PROC: B54NZZZ Ultrasonography of Left Upper Extremity Veins (ICD-10-PCS; 2024-09-01)
PROC: 0WPG30Z Removal of Drainage Device from Peritoneal Cavity, Percutaneous Approach (ICD-10-PCS; 2024-09-07)
PROC: 0W2GX0Z Change Drainage Device in Peritoneal Cavity, External Approach (ICD-10-PCS; 2024-09-07)
DX: K57.20 Diverticulitis of large intestine with perforation and abscess without bleeding (principal); K65.1 Peritoneal abscess; I50.20 Unspecified systolic (congestive) heart failure; I82.621 Acute embolism and thrombosis of deep veins of right upper extremity; Z16.12 Extended spectrum beta lactamase (ESBL) resistance; A04.72 Enterocolitis due to Clostridium difficile, not specified as recurrent; E78.5 Hyperlipidemia, unspecified; K21.9 Gastro-esophageal reflux disease without esophagitis; I11.0 Hypertensive heart disease with heart failure; E86.0 Dehydration; E11.9 Type 2 diabetes mellitus without complications; Z79.4 Long term (current) use of insulin; B96.20 Unspecified Escherichia coli [E. coli] as the cause of diseases classified elsewhere; B95.2 Enterococcus as the cause of diseases classified elsewhere; B96.89 Other specified bacterial agents as the cause of diseases classified elsewhere; F43.21 Adjustment disorder with depressed mood; N73.6 Female pelvic peritoneal adhesions (postinfective); N99.4 Postprocedural pelvic peritoneal adhesions; T50.905A Adverse effect of unspecified drugs, medicaments and biological substances, initial encounter; Z95.0 Presence of cardiac pacemaker; Z86.711 Personal history of pulmonary embolism; Z79.01 Long term (current) use of anticoagulants; I25.10 Atherosclerotic heart disease of native coronary artery without angina pectoris

== ENCOUNTER 2024-10-19 08:37 | Outpatient (CLI) | payer OTHER ==
[~2024-10-19 08:37] MED LIST changes: +AMOX1TAB5 PO; +DERMOPLAST PAIN78 GM TOP; +FLUCONAZOLE100 MG PO; +MECLIZINE HCL12.5 MG PO; +MUPIROCIN22 GM TOP; +NeuRONTin 400MG CAPS PO; +SERTRALINE HCL50 MG PO
== END 2024-10-19 08:38 | disposition home or self-care (01) ==
LOC: NUCLEAR 08:37
PROVIDERS: ATTEND Internal Medicine
DX: I26.99 Other pulmonary embolism without acute cor pulmonale (principal)
CPT/HCPCS: 78582; A9540; A9567

== ENCOUNTER 2024-11-14 14:01 | Inpatient (IN) | payer OTHER ==
[~2024-11-14] VITALS: Ht 152.4 cm; Wt 72.6 kg
[2024-11-14] MEDS ORDERED: PIPERACILLIN/TAZOBACTAM SODIUM 3.375 GM in 0.9 % SODIUM CHLORIDE 100 ML IV SCH (15:47)
[2024-11-14] MEDS ORDERED: 0.9 % SODIUM CHLORIDE 1,000 ML IV SCH ×2 (16:00→18:30)
[2024-11-14] MEDS ORDERED: MORPHINE SULFATE 4 MG/ML VIAL IV PRN (16:00)
[2024-11-14 16:30] LABS: BASO % 0.2 % (0.1-1.2); EOS # 0.05 (0.04-0.54); EOS % 0.4 % (0.7-7.0); LYMPH # 1.64 (1.18-3.74); LYMPH % 12.5 % (19.3-53.1); MEAN PLATELET VOLUME 9.00 fl (9.4-12.4); MONO # 0.74 (0.24-0.82); MONO % 5.7 % (4.7-12.5); NEUT # 10.43 (1.56-6.13); NEUT % 79.7 % (34.0-71.1); RED CELL DISTRIBUTION WIDTH 13.8 % (11.6-14.4)
[2024-11-14 16:49] LABS: INR 1.12
[2024-11-14 17:07] LABS: ALT/SGPT 14.0 U/L (12-78); AST/SGOT 10.0 U/L (15-37); BILIRUBIN TOTAL 0.37 mg/dL (0.3-1.2); BUN CREA RATIO 39.0 (7.0-25.0); CREATININE SERUM 0.84 mg/dL (0.55-1.02); GFR 67.42; GLOBULINA 5.1 G/DL (2.4-3.5); GLUCOSE FASTING 170.0 mg/dL (65-100); OSMOLALITY SERUM 279.0 MOSM/KG (275-295)
[2024-11-14 18:02] LABS: URINE APPEARANCE Clear; URINE BILIRRUBIN Negative (NEGATIVE); URINE BLOOD Small; URINE COLOR Yellow; URINE KETONE Negative (NEGATIVE); URINE LEUKOCYTE Trace; URINE NITRATE Negative; URINE PROTEIN Trace (NEGATIVE); URINE UROBILINOGEN 0.2 E.U./dl
[2024-11-14 18:07] LABS: URINE BACTERIA 25.1 uL (0.0-1933); URINE EPITHELIAL CELLS 4.3 uL (0.0-38.8); URINE RBC 12.4 uL (0.0-20.8); URINE WBC 10.1 uL (0.0-23.2)
[2024-11-14 18:20] LABS: URINE CAST 0.14 uL (0.0-1.40); URINE GLUCOSE >=1000 MG/DL (NEGATIVE)
[2024-11-14] MEDS ORDERED: DEXTROSE 50 % IN WATER 0.5 G/ML DISP.SYRIN IV PRN (18:30)
[2024-11-14] MEDS ORDERED: ONDANSETRON HCL 4 MG in 0.9 % SODIUM CHLORIDE 50 ML IV PRN (18:30)
[2024-11-14] MEDS ORDERED: INSULIN LISPRO 1,000 UNIT/10 ML UNITS SUBCUTANEO PRN (18:30)
[2024-11-14] MEDS ORDERED: PIPERACILLIN/TAZOBACTAM SODIUM 3.375 GM in DEXTROSE 5 % IN WATER 100 ML IV SCH (18:35)
[2024-11-14 20:11] VITALS: BP 126/88; O2SAT 97
[2024-11-14 20:35] VITALS: BP 138/82; O2SAT 98
[2024-11-14] MEDS ORDERED: ENOXAPARIN SODIUM 60 MG/0.6 ML SYRINGE SUBCUTANEO SCH (21:00)
[2024-11-14] MEDS ORDERED: CIPROFLOXACIN IN 5 % DEXTROSE 200 ML IV SCH (21:00)
[2024-11-15 02:23] VITALS: BP 101/68; O2SAT 96
[2024-11-15] MEDS ORDERED: SERTRALINE HCL 50 MG TABLET PO SCH (09:00)
[2024-11-15] MEDS ORDERED: FAMOTIDINE/PF 20 MG in 0.9 % SODIUM CHLORIDE 8 ML IV PUSH SCH ×2 (09:00→21:00)
[2024-11-15] MEDS ORDERED: SPIRONOLACTONE 25 MG TABLET PO SCH (09:00)
[2024-11-15] MEDS ORDERED: METOPROLOL SUCCINATE 50 MG TAB.SR.24H PO SCH (09:00)
[2024-11-15] MEDS ORDERED: ISOSORBIDE MONONITRATE 30 MG TABLET PO SCH (09:00)
[2024-11-15] MEDS ORDERED: PREDNISONE 10 MG TABLET PO SCH (09:00)
[2024-11-15 09:19] VITALS: BP 129/68
[2024-11-15] MEDS ORDERED: FLUCONAZOLE IN NACL,ISO-OSM 200 MG/100 ML PIGGYBAG IV STA (12:16)
[2024-11-15 16:09] VITALS: BP 123/74; O2SAT 95
[2024-11-15] MEDS ORDERED: CHLORHEXIDINE GLUCONATE 120 ML BOTTLE TOP SCH (17:00)
[2024-11-15] MEDS ORDERED: fentaNYL CITRATE 50 MCG/ML AMPUL IV PUSH ONE (17:45)
[2024-11-15] MEDS ORDERED: MIDAZOLAM HCL 2 MG/2 ML VIAL IV PUSH ONE (17:45)
[2024-11-16 03:02] VITALS: BP 128/72; O2SAT 97
[2024-11-16] MEDS ORDERED: LACTOBACILLUS ACIDOPHILUS 1 CAP CAP PO SCH (09:00)
[2024-11-16] MEDS ORDERED: FLUCONAZOLE IN NACL,ISO-OSM 200 MG/100 ML PIGGYBAG IV SCH (09:00)
[2024-11-16 09:31] VITALS: BP 155/81
[2024-11-16 19:01] VITALS: BP 155/80; O2SAT 98
[2024-11-16] MEDS ORDERED: MORPHINE SULFATE 4 MG/ML VIAL IV PRN (21:00)
[2024-11-17 03:21] VITALS: BP 144/71; O2SAT 97
[2024-11-17 08:42] VITALS: BP 138/73
[2024-11-17] MEDS ORDERED: FLUCONAZOLE 200 MG TABLET PO SCH (09:00)
[2024-11-17] MEDS ORDERED: MEROPENEM 500 MG/VIAL VIAL IV STA (09:12)
[2024-11-17] MEDS ORDERED: MEROPENEM 500 MG/VIAL VIAL IV SCH (14:00)
[2024-11-17 18:24] VITALS: BP 139/78
[2024-11-18 03:31] VITALS: BP 135/74; O2SAT 98
[2024-11-18 06:42] LABS: BASO % 0.7 % (0.1-1.2); EOS # 0.18 (0.04-0.54); EOS % 2.4 % (0.7-7.0); LYMPH # 2.58 (1.18-3.74); LYMPH % 34.0 % (19.3-53.1); MEAN PLATELET VOLUME 9.10 fl (9.4-12.4); MONO # 0.57 (0.24-0.82); MONO % 7.5 % (4.7-12.5); NEUT # 3.92 (1.56-6.13); NEUT % 51.6 % (34.0-71.1); RED CELL DISTRIBUTION WIDTH 13.6 % (11.6-14.4)
[2024-11-18 07:12] LABS: ALT/SGPT 13.0 U/L (12-78); AST/SGOT 9.0 U/L (15-37); BILIRUBIN TOTAL 0.23 mg/dL (0.3-1.2); BUN CREA RATIO 27.0 (7.0-25.0); CREATININE SERUM 0.49 mg/dL (0.55-1.02); GFR 125.59; GLOBULINA 3.7 G/DL (2.4-3.5); GLUCOSE FASTING 127.0 mg/dL (65-100); OSMOLALITY SERUM 281.0 MOSM/KG (275-295)
[2024-11-18 07:37] LABS: BAND MAN 3.0 %; EOSINOPHIL MAN 1.0 %; LYMPHOCYTE MAN 35.0 %; MONOCYTE MAN 7.0 %; NEUTROPHILS MAN 50.0 %
[2024-11-18 07:45] LABS: ERYTHROCYTE SEDIMENTATION RATE 62 mm/hr (0-30)
[2024-11-18] MEDS ORDERED: LINEZOLID IN DEXTROSE 5% 300 ML IV SCH (09:00)
[2024-11-18 09:16] VITALS: BP 125/68; O2SAT 97
[2024-11-18 16:00] VITALS: BP 146/73; O2SAT 98
[2024-11-18] MEDS ORDERED: CLONAZEPAM 0.5 MG TABLET PO SCH (17:00)
[2024-11-18] MEDS ORDERED: ZOLPIDEM TARTRATE 5 MG TABLET PO SCH (21:00)
[2024-11-19 02:39] VITALS: BP 147/77; O2SAT 96
[2024-11-19] MEDS ORDERED: INSULIN NPH HUM/REG INSULIN HM 1,000 UNIT/10 ML UNITS SUBCUTANEO SCH (08:00)
[2024-11-19 09:14] VITALS: BP 148/79; O2SAT 96
[2024-11-19 18:20] VITALS: BP 140/80; O2SAT 100
[2024-11-20 02:22] VITALS: BP 133/77; O2SAT 97
[2024-11-20 10:14] VITALS: BP 150/83; O2SAT 98
[2024-11-20 18:45] VITALS: BP 144/76; O2SAT 97
[2024-11-20] MEDS ORDERED: MORPHINE SULFATE 4 MG/ML VIAL IV PRN (23:00)
[2024-11-21 02:22] VITALS: BP 142/72; O2SAT 97
[2024-11-21 06:44] LABS: BASO % 0.5 % (0.1-1.2); EOS # 0.12 (0.04-0.54); EOS % 1.6 % (0.7-7.0); LYMPH # 2.89 (1.18-3.74); LYMPH % 39.5 % (19.3-53.1); MEAN PLATELET VOLUME 8.90 fl (9.4-12.4); MONO # 0.62 (0.24-0.82); MONO % 8.5 % (4.7-12.5); NEUT # 3.57 (1.56-6.13); NEUT % 48.8 % (34.0-71.1); RED CELL DISTRIBUTION WIDTH 13.9 % (11.6-14.4)
[2024-11-21 07:13] LABS: ALT/SGPT 28.0 U/L (12-78); AST/SGOT 15.0 U/L (15-37); BILIRUBIN TOTAL 0.17 mg/dL (0.3-1.2); BUN CREA RATIO 38.0 (7.0-25.0); CREATININE SERUM 0.53 mg/dL (0.55-1.02); GFR 114.72; GLOBULINA 3.4 G/DL (2.4-3.5); OSMOLALITY SERUM 290.0 MOSM/KG (275-295)
[2024-11-21 07:15] LABS: GLUCOSE FASTING 209.0 mg/dL (65-100)
[2024-11-21] MEDS ORDERED: INSULIN NPH HUM/REG INSULIN HM 1,000 UNIT/10 ML UNITS SUBCUTANEO SCH (08:00)
[2024-11-21 09:10] VITALS: BP 118/68; O2SAT 96
[2024-11-21] MEDS ORDERED: NAPHAZOLINE HCL/PHENIRAMINE 20 DR/ML DROPS OP STA (11:06)
[2024-11-21] MEDS ORDERED: MAGNESIUM SULFATE IN WATER 4 GM/100 ML PIGGYBACK IV NR (11:30)
[2024-11-21] MEDS ORDERED: POTASSIUM PHOS,M-BASIC-D-BASIC 18 MM in 0.9 % SODIUM CHLORIDE 500 ML IV ONE (14:00)
[2024-11-21] MEDS ORDERED: NAPHAZOLINE HCL/PHENIRAMINE 20 DR/ML DROPS OP SCH (16:00)
[2024-11-21] MEDS ORDERED: DIATRIZOATE MEGLUMINE, SODIUM 30 ML BOTTLE PO NR (18:00)
[2024-11-21 18:23] VITALS: BP 126/79
[2024-11-22 02:22] VITALS: BP 131/78; O2SAT 97
[2024-11-22 16:41] VITALS: BP 107/69
[2024-11-23 02:00] VITALS: BP 146/74; O2SAT 96
[2024-11-23 09:09] VITALS: BP 124/72; O2SAT 97
[2024-11-23 16:53] VITALS: BP 117/56
[2024-11-24 03:24] VITALS: BP 132/78; O2SAT 97
[2024-11-24 09:47] VITALS: BP 111/63; O2SAT 99
[2024-11-24 18:04] VITALS: BP 121/75
[2024-11-25 03:35] VITALS: BP 112/64
[2024-11-25 10:14] VITALS: BP 116/66; BP 128/68; O2SAT 97; O2SAT 98
[2024-11-25] MEDS ORDERED: INSULIN LISPRO 1,000 UNIT/10 ML UNITS SUBCUTANEO SCH (17:00)
[2024-11-25 18:00] VITALS: BP 121/69
[2024-11-26 03:48] VITALS: BP 108/68; O2SAT 95
[2024-11-26 07:25] LABS: BASO % 0.5 % (0.1-1.2); EOS # 0.20 (0.04-0.54); EOS % 3.1 % (0.7-7.0); LYMPH # 2.62 (1.18-3.74); LYMPH % 40.9 % (19.3-53.1); MEAN PLATELET VOLUME 10.70 fl (9.4-12.4); MONO # 0.70 (0.24-0.82); MONO % 10.9 % (4.7-12.5); NEUT # 2.84 (1.56-6.13); NEUT % 44.4 % (34.0-71.1); RED CELL DISTRIBUTION WIDTH 14.4 % (11.6-14.4)
[2024-11-26 07:44] LABS: ERYTHROCYTE SEDIMENTATION RATE 30 mm/hr (0-30)
[2024-11-26 08:38] VITALS: BP 122/81
[2024-11-26 08:43] LABS: ALT/SGPT 23.0 U/L (12-78); AST/SGOT 11.0 U/L (15-37); BILIRUBIN TOTAL 0.34 mg/dL (0.3-1.2); BUN CREA RATIO 31.0 (7.0-25.0); CREATININE SERUM 0.39 mg/dL (0.55-1.02); GFR 163.43; GLOBULINA 3.2 G/DL (2.4-3.5); GLUCOSE FASTING 151.0 mg/dL (65-100); OSMOLALITY SERUM 288.0 MOSM/KG (275-295)
[2024-11-26 18:52] VITALS: BP 96/56
[2024-11-27 03:33] VITALS: BP 124/73; O2SAT 96
[2024-11-27 08:30] VITALS: BP 103/62
[2024-11-27 19:24] VITALS: BP 109/58
[2024-11-27] MEDS ORDERED: CLONAZEPAM 0.5 MG TABLET PO SCH (21:00)
[2024-11-28 02:39] VITALS: BP 119/70; O2SAT 97
[2024-11-28 06:05] LABS: BASO % 0.7 % (0.1-1.2); EOS # 0.17 (0.04-0.54); EOS % 2.8 % (0.7-7.0); LYMPH # 2.37 (1.18-3.74); LYMPH % 39.0 % (19.3-53.1); MEAN PLATELET VOLUME 9.30 fl (9.4-12.4); MONO # 0.68 (0.24-0.82); MONO % 11.2 % (4.7-12.5); NEUT # 2.81 (1.56-6.13); NEUT % 46.1 % (34.0-71.1); RED CELL DISTRIBUTION WIDTH 13.6 % (11.6-14.4)
[2024-11-28 07:03] LABS: BUN CREA RATIO 34.0 (7.0-25.0); CREATININE SERUM 0.41 mg/dL (0.55-1.02); GFR 154.27; GLUCOSE FASTING 115.0 mg/dL (65-100); OSMOLALITY SERUM 285.0 MOSM/KG (275-295)
[2024-11-28 09:17] VITALS: BP 160/80; O2SAT 98
[2024-11-28 17:41] VITALS: BP 96/67
[2024-11-28 17:56] VITALS: BP 110/57
[2024-11-29 01:56] VITALS: BP 146/68; O2SAT 97
[2024-11-29] MEDS ORDERED: MORPHINE SULFATE 4 MG/ML VIAL IV PRN (05:00)
[2024-11-29 08:55] VITALS: BP 134/77; O2SAT 96
[2024-11-29 17:48] VITALS: BP 126/75; O2SAT 97
[2024-11-30 03:08] VITALS: BP 140/80; O2SAT 97
[2024-11-30 07:00] VITALS: BP 119/70; O2SAT 96
[2024-11-30 17:29] VITALS: BP 134/64
[2024-12-01 01:11] VITALS: BP 132/65; O2SAT 96
[2024-12-01 09:05] VITALS: BP 131/75; O2SAT 98
[2024-12-01 17:28] VITALS: BP 139/77
[2024-12-01] MEDS ORDERED: MORPHINE SULFATE 4 MG/ML CARTRIDGE IV PRN (20:00)
[2024-12-02 01:02] VITALS: BP 130/79; O2SAT 98
[2024-12-02] MEDS ORDERED: DIATRIZOATE MEGLUMINE, SODIUM 30 ML BOTTLE PO ONE (06:00)
[2024-12-02 06:31] LABS: ALT/SGPT 20.0 U/L (12-78); AST/SGOT 14.0 U/L (15-37); BILIRUBIN TOTAL 0.26 mg/dL (0.3-1.2); BUN CREA RATIO 44.0 (7.0-25.0); CREATININE SERUM 0.36 mg/dL (0.55-1.02); GFR 179.25; GLOBULINA 3.1 G/DL (2.4-3.5); GLUCOSE FASTING 95.0 mg/dL (65-100); OSMOLALITY SERUM 284.0 MOSM/KG (275-295)
[2024-12-02 09:21] VITALS: BP 133/77; O2SAT 96
[2024-12-02 20:11] VITALS: BP 131/80; O2SAT 97
[2024-12-03 00:36] VITALS: BP 152/60; O2SAT 99
[2024-12-03 08:36] VITALS: BP 137/67; O2SAT 97
[2024-12-03 18:00] VITALS: BP 153/81; O2SAT 98
[2024-12-04 01:08] VITALS: BP 148/81; O2SAT 96
[2024-12-04 09:08] VITALS: BP 160/73; O2SAT 97
[2024-12-04] MEDS ORDERED: MORPHINE SULFATE 4 MG/ML CARTRIDGE IV PRN (10:15)
[2024-12-04 17:25] VITALS: BP 145/80; O2SAT 100
[2024-12-05 01:09] VITALS: BP 147/76; O2SAT 98
[2024-12-05] MEDS ORDERED: INSULIN NPH HUM/REG INSULIN HM 1,000 UNIT/10 ML UNITS SUBCUTANEO SCH (08:00)
[2024-12-05 09:13] VITALS: BP 137/79; O2SAT 98
[2024-12-05 17:27] VITALS: BP 121/70
[2024-12-05 17:37] VITALS: BP 144/80
[2024-12-06 02:37] VITALS: BP 132/77; O2SAT 96
[2024-12-06 08:23] VITALS: BP 130/75
[2024-12-06 17:18] VITALS: BP 137/76; O2SAT 96
[2024-12-06 17:20] VITALS: BP 137/76; O2SAT 96
[2024-12-06] MEDS ORDERED: MORPHINE SULFATE 4 MG/ML CARTRIDGE IV PRN (21:15)
[2024-12-07 02:38] VITALS: BP 131/73; O2SAT 96
[2024-12-07 08:50] VITALS: BP 149/69
[2024-12-07 19:57] VITALS: BP 153/77
[2024-12-08 01:24] VITALS: BP 146/79; O2SAT 97
[2024-12-08 08:52] VITALS: BP 118/72; O2SAT 95
[2024-12-08] MEDS ORDERED: CLONAZEPAM 0.5 MG TABLET PO SCH (09:00)
[2024-12-08 18:58] VITALS: BP 142/75
[2024-12-09 02:03] VITALS: BP 138/78; O2SAT 97
[2024-12-09 09:53] VITALS: BP 109/70; O2SAT 95
[2024-12-09] MEDS ORDERED: INTESTINEX680 M1 PO (11:22)
== END 2024-12-09 15:28 | disposition home or self-care (01) | DRG 371 ==
LOC: ER 14:13 → MEDJ 18:51 → MEDI 18:51 → MEDJ 11-15 13:23
PROVIDERS: General Practice; Internal Medicine; Specialist; ADMIT Internal Medicine; ATTEND Internal Medicine
PROC: 8E0ZXY6 Isolation (ICD-10-PCS; principal; 2024-11-15)
PROC: 0T9B30Z Drainage of Bladder with Drainage Device, Percutaneous Approach (ICD-10-PCS; 2024-11-15)
PROC: BW21YZZ Computerized Tomography (CT Scan) of Abdomen and Pelvis using Other Contrast (ICD-10-PCS; 2024-11-22)
PROC: 0W2GX0Z Change Drainage Device in Peritoneal Cavity, External Approach (ICD-10-PCS; 2024-11-25)
PROC: 0WW Anatomical Regions, General, Revision (ICD-10-PCS; 2024-11-25)
PROC: BW21YZZ Computerized Tomography (CT Scan) of Abdomen and Pelvis using Other Contrast (ICD-10-PCS; 2024-12-02)
PROC: 0WPGX0Z Removal of Drainage Device from Peritoneal Cavity, External Approach (ICD-10-PCS; 2024-12-06)
PROC: B246ZZZ Ultrasonography of Right and Left Heart (ICD-10-PCS; 2024-12-07)
DX: K65.1 Peritoneal abscess (principal); I50.23 Acute on chronic systolic (congestive) heart failure; K63.2 Fistula of intestine; K57.20 Diverticulitis of large intestine with perforation and abscess without bleeding; E27.3 Drug-induced adrenocortical insufficiency; I42.8 Other cardiomyopathies; T38.0X5A Adverse effect of glucocorticoids and synthetic analogues, initial encounter; E83.42 Hypomagnesemia; E83.39 Other disorders of phosphorus metabolism; I80.8 Phlebitis and thrombophlebitis of other sites; R23.8 Other skin changes; Z93.3 Colostomy status; I11.0 Hypertensive heart disease with heart failure; B96.4 Proteus (mirabilis) (morganii) as the cause of diseases classified elsewhere; B96.1 Klebsiella pneumoniae [K. pneumoniae] as the cause of diseases classified elsewhere; B96.20 Unspecified Escherichia coli [E. coli] as the cause of diseases classified elsewhere; B96.89 Other specified bacterial agents as the cause of diseases classified elsewhere; E78.5 Hyperlipidemia, unspecified; Z95.810 Presence of automatic (implantable) cardiac defibrillator; Z79.4 Long term (current) use of insulin

== ENCOUNTER 2025-01-02 13:28 | Inpatient (IN) | payer OTHER ==
[~2025-01-02] VITALS: Ht 160 cm; Wt 74.8 kg
--- NOTE | 2025-01-02 13:39 | NUR ---
PACIENTE FEMINA, C/C DOLOR ABDOMINAL, SE UBIUCA EN CAMA 7 PARA SER EVALUADA.
[2025-01-02] MEDS ORDERED: ACETAMINOPHEN 500 MG GEL..CAP PO ONE ×2 (16:45→17:00)
[2025-01-02] MEDS ORDERED: PIPERACILLIN/TAZOBACTAM SODIUM 3.375 GM in DEXTROSE 5 % IN WATER 100 ML IV ONE (16:45)
[2025-01-02] MEDS ORDERED: ONDANSETRON HCL 4 MG in 0.9 % SODIUM CHLORIDE 50 ML IV ONE (17:00)
[2025-01-02] MEDS ORDERED: 0.9 % SODIUM CHLORIDE 1,000 ML IV SCH (17:00)
[2025-01-02] MEDS ORDERED: FAMOtidine 10 MG/ML (4ML VIAL) IV PUSH ONE (17:00)
[2025-01-02] MEDS ORDERED: MORPHINE SULFATE 4 MG/ML CARTRIDGE IV ONE (17:00)
[2025-01-02] MEDS ORDERED: ONDANSETRON HCL 2 MG/ML VIAL ONE (17:01)
[2025-01-02] MEDS ORDERED: FAMOTIDINE/PF 20 MG/2 ML VIAL ONE (17:01)
[2025-01-02] MEDS ORDERED: PIPERACILLIN/TAZOBACTAM SODIUM 3.375 GM VIAL IV ONE (17:01)
[2025-01-02 17:25] LABS: BASO % 0.2 % (0.1-1.2); EOS # 0.06 (0.04-0.54); EOS % 0.3 % (0.7-7.0); LYMPH # 2.72 (1.18-3.74); LYMPH % 15.0 % (19.3-53.1); MEAN PLATELET VOLUME 9.40 fl (9.4-12.4); MONO # 1.71 (0.24-0.82); MONO % 9.4 % (4.7-12.5); NEUT # 13.47 (1.56-6.13); NEUT % 74.4 % (34.0-71.1); RED CELL DISTRIBUTION WIDTH 13.4 % (11.6-14.4)
[2025-01-02 17:31] VITALS: BP 130/89
[2025-01-02 17:32] LABS: ERYTHROCYTE SEDIMENTATION RATE 61 mm/hr (0-30)
[2025-01-02 18:05] LABS: ALT/SGPT 66.0 U/L (12-78); AST/SGOT 28.0 U/L (15-37); BILIRUBIN TOTAL 0.97 mg/dL (0.3-1.2); BUN CREA RATIO 29.0 (7.0-25.0); CREATININE SERUM 0.75 mg/dL (0.55-1.02); GFR 76.84; GLOBULINA 4.3 G/DL (2.4-3.5); GLUCOSE FASTING 185.0 mg/dL (65-100); OSMOLALITY SERUM 286.0 MOSM/KG (275-295)
--- NOTE | 2025-01-02 18:34 | NUR ---
SE EDUCA PACIENTE SOBRE EL TX MEDICO Y ESTA REFIERE ENTENDER. SE CANALIZA Y SE ADMINISTRA MEDICAMENTOS MAXIMINO ORDEN MEDICA. SE JASKARAN MUESTRAS DE LABORATORIOS Y SE ENVIAN. PENDIENTE A CT SCAN
[2025-01-02 19:57] LABS: URINE APPEARANCE Clear; URINE BILIRRUBIN Negative (NEGATIVE); URINE BLOOD Small; URINE COLOR Yellow; URINE KETONE Negative (NEGATIVE); URINE LEUKOCYTE Negative; URINE NITRATE Negative; URINE PROTEIN 30 (NEGATIVE); URINE UROBILINOGEN 0.2 E.U./dl
[2025-01-02 20:02] LABS: URINE BACTERIA 19.2 uL (0.0-1933); URINE EPITHELIAL CELLS 5.0 uL (0.0-38.8); URINE RBC 6.1 uL (0.0-20.8); URINE WBC 31.0 uL (0.0-23.2)
[2025-01-02 20:05] LABS: URINE CAST 1.02 uL (0.0-1.40); URINE GLUCOSE >=1000 MG/DL (NEGATIVE)
[2025-01-02] MEDS ORDERED: FAMOTIDINE/PF 20 MG in 0.9 % SODIUM CHLORIDE 8 ML IV PUSH SCH (21:36)
[2025-01-02] MEDS ORDERED: MEROPENEM 1,000 MG in 0.9 % SODIUM CHLORIDE 100 ML IV SCH (21:39)
[2025-01-02] MEDS ORDERED: ENOXAPARIN SODIUM 40 MG/0.4 ML SYRINGE SUBCUTANEO SCH (21:40)
[2025-01-02] MEDS ORDERED: PREDNISONE 10 MG TABLET PO SCH (21:40)
[2025-01-02] MEDS ORDERED: ISOSORBIDE MONONITRATE 30 MG TABLET PO SCH (21:40)
[2025-01-02] MEDS ORDERED: METOPROLOL SUCCINATE 25 MG TAB.SR.24H PO SCH (21:42)
[2025-01-02] MEDS ORDERED: SPIRONOLACTONE 25 MG TABLET PO SCH (21:42)
[2025-01-02] MEDS ORDERED: INSULIN LISPRO 1,000 UNIT/10 ML UNITS SUBCUTANEO PRN (21:45)
[2025-01-02] MEDS ORDERED: DEXTROSE 50 % IN WATER 0.5 G/ML DISP.SYRIN IV PRN (21:45)
[2025-01-02] MEDS ORDERED: MORPHINE SULFATE 4 MG/ML CARTRIDGE IV PRN (21:45)
[2025-01-02] MEDS ORDERED: ACETAMINOPHEN 325 MG TABLET PO PRN (21:45)
[2025-01-02] MEDS ORDERED: ONDANSETRON HCL 4 MG in 0.9 % SODIUM CHLORIDE 50 ML IV PRN (22:00)
[2025-01-03] MEDS ORDERED: FAMOTIDINE/PF 20 MG/2 ML VIAL ONE (05:06)
[2025-01-03 07:00] VITALS: BP 100/61; O2SAT 96
[2025-01-03] MEDS ORDERED: MEROPENEM 500 MG in 0.9 % SODIUM CHLORIDE 50 ML IV SCH (12:00)
[2025-01-03] MEDS ORDERED: INSULIN LISPRO 1,000 UNIT/10 ML UNITS SUBCUTANEO ONE (14:31)
[2025-01-03] MEDS ORDERED: MIDAZOLAM HCL 2 MG/2 ML VIAL IV PUSH ONE (15:30)
[2025-01-03] MEDS ORDERED: fentaNYL CITRATE 50 MCG/ML AMPUL IV PUSH ONE (15:30)
[2025-01-04 00:25] VITALS: BP 131/86; O2SAT 98
[2025-01-04] MEDS ORDERED: ACETAMINOPHEN 325 MG TABLET PO ONE (04:16)
[2025-01-04 07:53] VITALS: BP 105/65; O2SAT 97
[2025-01-04 15:00] VITALS: BP 126/70; O2SAT 98
[2025-01-04 21:55] VITALS: O2SAT 97
[2025-01-04 23:08] VITALS: BP 123/70; O2SAT 96
[2025-01-05] VITALS (9 sets, daily range): BP systolic 117–132; BP diastolic 67–75; O2SAT 0–98
[2025-01-05 05:38] LABS: BASO % 0.1 % (0.1-1.2); EOS # 0.21 (0.04-0.54); EOS % 2.4 % (0.7-7.0); LYMPH # 2.08 (1.18-3.74); LYMPH % 24.2 % (19.3-53.1); MEAN PLATELET VOLUME 9.40 fl (9.4-12.4); MONO # 0.87 (0.24-0.82); MONO % 10.1 % (4.7-12.5); NEUT # 5.39 (1.56-6.13); NEUT % 62.9 % (34.0-71.1); RED CELL DISTRIBUTION WIDTH 12.6 % (11.6-14.4)
[2025-01-05 05:55] LABS: ERYTHROCYTE SEDIMENTATION RATE 120 mm/hr (0-30)
[2025-01-05 06:48] LABS: ALT/SGPT 27.0 U/L (12-78); AST/SGOT 10.0 U/L (15-37); BILIRUBIN TOTAL 0.4 mg/dL (0.3-1.2); BUN CREA RATIO 17.0 (7.0-25.0); CREATININE SERUM 0.48 mg/dL (0.55-1.02); GFR 128.61; GLOBULINA 3.9 G/DL (2.4-3.5); GLUCOSE FASTING 112.0 mg/dL (65-100); OSMOLALITY SERUM 278.0 MOSM/KG (275-295)
[2025-01-06] VITALS (9 sets, daily range): BP systolic 116–136; BP diastolic 56–75; O2SAT 93–98
[2025-01-06] MEDS ORDERED: CHLORHEXIDINE GLUCONATE 120 ML BOTTLE TOP SCH (09:00)
[2025-01-06] MEDS ORDERED: LINEZOLID IN DEXTROSE 5% 300 ML IV SCH (17:00)
[2025-01-07] VITALS (8 sets, daily range): BP systolic 135–153; BP diastolic 69–78; O2SAT 90–97
[2025-01-07] MEDS ORDERED: BENZOCAINE/MENTHOL 90 ML BOTTLE TOP PRN (14:30)
[2025-01-08] VITALS (9 sets, daily range): BP systolic 114–161; BP diastolic 62–78; O2SAT 96–99
[2025-01-08] MEDS ORDERED: ZOLPIDEM TARTRATE 10 MG TABLET PO SCH (21:00)
[2025-01-08] MEDS ORDERED: SODIUM CL 0.9% 50 ML IV.SOLN IV ONE (22:52)
[2025-01-09] VITALS (8 sets, daily range): BP systolic 122–158; BP diastolic 71–90; O2SAT 95–99
[2025-01-09 06:13] LABS: BASO % 0.5 % (0.1-1.2); EOS # 0.21 (0.04-0.54); EOS % 3.2 % (0.7-7.0); LYMPH # 2.46 (1.18-3.74); LYMPH % 36.9 % (19.3-53.1); MEAN PLATELET VOLUME 8.90 fl (9.4-12.4); MONO # 0.51 (0.24-0.82); MONO % 7.7 % (4.7-12.5); NEUT # 3.38 (1.56-6.13); NEUT % 50.6 % (34.0-71.1); RED CELL DISTRIBUTION WIDTH 12.4 % (11.6-14.4)
[2025-01-09 06:46] LABS: BUN CREA RATIO 22.0 (7.0-25.0); CREATININE SERUM 0.45 mg/dL (0.55-1.02); GFR 138.56; GLUCOSE FASTING 143.0 mg/dL (65-100); OSMOLALITY SERUM 285.0 MOSM/KG (275-295)
[2025-01-09] MEDS ORDERED: MORPHINE SULFATE 4 MG/ML CARTRIDGE IV PRN (13:00)
[2025-01-09] MEDS ORDERED: FAMOTIDINE/PF 20 MG/2 ML VIAL ONE (16:18)
[2025-01-09] MEDS ORDERED: MEROPENEM 500 MG/VIAL VIAL IV ONE (16:18)
[2025-01-10 01:11] VITALS: BP 156/76; O2SAT 97
[2025-01-10 04:00] VITALS: O2SAT 93
[2025-01-10] MEDS ORDERED: BARIUM SULFATE 450 ML ORAL.SUSP PO ONE (06:00)
[2025-01-10 08:45] VITALS: O2SAT 96
[2025-01-10 10:08] VITALS: BP 150/85; O2SAT 96
[2025-01-10 12:05] VITALS: O2SAT 95
[2025-01-10] MEDS ORDERED: LINEZOLID 600 MG TABLET PO SCH ×2 (17:00→21:00)
[2025-01-10 19:13] VITALS: BP 140/72; O2SAT 95
[2025-01-11] VITALS (9 sets, daily range): BP systolic 115–150; BP diastolic 71–83; O2SAT 94–100
[2025-01-11] MEDS ORDERED: AMINO ACIDS/PROTEIN HYDROLYS 30 ML BLIST.PACK PO SCH (17:00)
[2025-01-12] VITALS (8 sets, daily range): BP systolic 135–150; BP diastolic 75–80; O2SAT 94–98
[2025-01-13] VITALS (7 sets, daily range): BP systolic 122–154; BP diastolic 72–80; O2SAT 95–99
[2025-01-13 05:49] LABS: BASO % 0.5 % (0.1-1.2); EOS # 0.21 (0.04-0.54); EOS % 3.4 % (0.7-7.0); LYMPH # 2.70 (1.18-3.74); LYMPH % 43.1 % (19.3-53.1); MEAN PLATELET VOLUME 8.70 fl (9.4-12.4); MONO # 0.59 (0.24-0.82); MONO % 9.4 % (4.7-12.5); NEUT # 2.68 (1.56-6.13); NEUT % 42.8 % (34.0-71.1); RED CELL DISTRIBUTION WIDTH 13.0 % (11.6-14.4)
[2025-01-13 06:51] LABS: ALT/SGPT 23.0 U/L (12-78); AST/SGOT 15.0 U/L (15-37); BILIRUBIN TOTAL 0.34 mg/dL (0.3-1.2); BUN CREA RATIO 32.0 (7.0-25.0); CREATININE SERUM 0.53 mg/dL (0.55-1.02); GFR 114.72; GLOBULINA 3.6 G/DL (2.4-3.5); GLUCOSE FASTING 123.0 mg/dL (65-100); OSMOLALITY SERUM 286.0 MOSM/KG (275-295)
[2025-01-14 03:38] VITALS: BP 138/75; O2SAT 97
[2025-01-14 08:54] VITALS: BP 143/87; O2SAT 98
[2025-01-14 08:59] VITALS: O2SAT 99
[2025-01-14 17:24] VITALS: O2SAT 97
[2025-01-14 20:29] VITALS: BP 125/71
[2025-01-14 21:45] VITALS: O2SAT 98
[2025-01-15] VITALS (7 sets, daily range): BP systolic 140–160; BP diastolic 82–85; O2SAT 94–100
[2025-01-15] MEDS ORDERED: LIDOCAINE 1 EACH ADH..PATCH TOP SCH ×2 (12:00)
[2025-01-16] VITALS (9 sets, daily range): BP systolic 124–156; BP diastolic 64–81; O2SAT 96–98
[2025-01-16] MEDS ORDERED: ZOLPIDEM TARTRATE 10 MG TABLET PO SCH (02:15)
[2025-01-16] MEDS ORDERED: MORPHINE SULFATE 4 MG/ML CARTRIDGE IV PRN (06:00)
[2025-01-17] VITALS (7 sets, daily range): BP systolic 130–152; BP diastolic 71–79; O2SAT 95–97
[2025-01-17] MEDS ORDERED: SODIUM CL 0.9% 50 ML IV.SOLN IV ONE (02:13)
[2025-01-17] MEDS ORDERED: CLONAZEPAM 0.5 MG TABLET PO PRN (15:45)
[2025-01-18 03:19] VITALS: BP 153/75; O2SAT 98
[2025-01-18 10:30] VITALS: BP 148/77; O2SAT 96
[2025-01-18] MEDS ORDERED: MORPHINE SULFATE 4 MG/ML CARTRIDGE IV PRN (16:30)
[2025-01-18 18:14] VITALS: BP 145/81; O2SAT 97
[2025-01-18] MEDS ORDERED: DOXAZOSIN MESYLATE 2 MG TABLET PO SCH (21:00)
[2025-01-19 02:43] VITALS: BP 152/80; O2SAT 97
[2025-01-19 11:05] VITALS: BP 136/64; O2SAT 97
[2025-01-19] MEDS ORDERED: AMINO ACIDS/PROTEIN HYDROLYS 30 ML BLIST.PACK PO SCH (17:00)
[2025-01-19 17:59] VITALS: BP 131/65
[2025-01-20 02:15] VITALS: BP 124/70; O2SAT 95
[2025-01-20 09:31] VITALS: BP 149/81; O2SAT 97
[2025-01-20] MEDS ORDERED: HYDROCODONE-AC1 EACH PO (14:24)
[2025-01-20] MEDS ORDERED: PREDNISONE10 MG PO (14:24)
[2025-01-20] MEDS ORDERED: PROTEINEX-18 LI30 ML PO (14:24)
[2025-01-20] MEDS ORDERED: DOXAZOSIN MESYLA2 MG PO (14:24)
[2025-01-20] MEDS ORDERED: LIDOCAINE PAIN1 EACH TOP (14:24)
[2025-01-20] MEDS ORDERED: MEROPENEM 500 MG/VIAL VIAL IV ONE (16:05)
[2025-01-20] MEDS ORDERED: MORPHINE SULFATE 4 MG/ML CARTRIDGE IV STA (17:10)
== END 2025-01-20 17:37 | disposition home or self-care (01) | DRG 372 ==
LOC: ER 13:29 → SEC-K 22:04 → MEDI 01-04 12:06 → MEDJ 01-05 14:08
PROVIDERS: General Practice; Internal Medicine; ADMIT Internal Medicine; ATTEND Internal Medicine
PROC: BW21YZZ Computerized Tomography (CT Scan) of Abdomen and Pelvis using Other Contrast (ICD-10-PCS; principal; 2025-01-02)
PROC: 0W9F3ZZ Drainage of Abdominal Wall, Percutaneous Approach (ICD-10-PCS; 2025-01-03)
PROC: 0W9G3ZZ Drainage of Peritoneal Cavity, Percutaneous Approach (ICD-10-PCS; 2025-01-03)
PROC: 0T9B3ZZ Drainage of Bladder, Percutaneous Approach (ICD-10-PCS; 2025-01-03)
PROC: 8E0ZXY6 Isolation (ICD-10-PCS; 2025-01-05)
DX: K65.1 Peritoneal abscess (principal); I50.20 Unspecified systolic (congestive) heart failure; B96.29 Other Escherichia coli [E. coli] as the cause of diseases classified elsewhere; B95.2 Enterococcus as the cause of diseases classified elsewhere; B96.4 Proteus (mirabilis) (morganii) as the cause of diseases classified elsewhere; B96.1 Klebsiella pneumoniae [K. pneumoniae] as the cause of diseases classified elsewhere; N30.80 Other cystitis without hematuria; I11.0 Hypertensive heart disease with heart failure; E78.49 Other hyperlipidemia; E11.9 Type 2 diabetes mellitus without complications; Z79.4 Long term (current) use of insulin